=== PATIENT | male | born 1965 ===

== ENCOUNTER → 2020-11-14 14:16 | Outpatient (BNVA) | payer MEDICARE, SELFPAY | PROVIDERS: PCP Internal Medicine; Visit Provider Nurse Practitioner Family | DX: M05.79 Rheumatoid arthritis with rheumatoid factor of multiple sites without organ or systems involvement (principal); M25.50 Pain in unspecified joint; M25.561 Pain in right knee; M25.562 Pain in left knee; G89.29 Other chronic pain | CPT/HCPCS: 99202 ==

== ENCOUNTER 2023-10-25 10:28 | Outpatient (AMB) | payer MEDICARE, OTHER, SELFPAY ==
--- NOTE | 2023-10-25 11:08 | AM.OFFWIN_ITS ---
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 Patient Tobacco Use Status: Current everyday Tobacco user Allergies naproxen [From Aleve] Adverse Reaction (Verified 10/25/23 12:55) rash Medication List - Last Reconciled 10/25/23 by Regulo Aguila MD amlodipine 5 mg PO DAILY atorvastatin mg PO erythromycin 0.5 inches ophthalmic (eye) TID escitalopram oxalate mg PO folic acid PO gabapentin mg PO methotrexate sodium mg PO omeprazole 20 mg PO DAILY oxycodone-acetaminophen 5-325 mg 1 tab PO QID PRN tramadol 50 mg PO Q6H PRN Do you need a note to return to daycare/school/sports/work: No HPI FULL TIME BABYSITTER/eye irritation (lobby) HPI Details 58 yr old male presents to the office fo r a sick visit. Patient is complaining of her red eye. Symptoms started yesterday. This morning he had mucoid discharge and excessive tearing from the right eye. No symptoms of cold, congestion or cough. PFSH Social History Patient Tobacco Use Status: Current everyday Tobacco user Physical Exam Vital Signs: Last Vital Signs Pulse 81 10/25/23 11:10 BP 114/68 10/25/23 11:10 Pulse Ox 96 10/25/23 11:10 Oxygen Delivery Method Room Air 10/25/23 11:10 BMI result Body Mass Index 23.6 Eyes Other: Right eye: Bulbar conjunctiva is congested. Corneas clear. Anterior chambers clear no digital tenderness. Assessment & Plan Assessment & Plan (1) Acute conjunctivitis: Code(s): H10.30 - Unspecified acute conjunctivitis, unspecified eye Plan Erythromycin ointment called in. If symptoms not better to follow-up here. Medications: New erythromycin 0.5 inches ophthalmic (eye) TID 1 g 0RF Coding Level of Care Code Est Pt Level 3 (98536) Diagnoses Acute conjunctivitis H10.30
[2023-10-25 11:10] VITALS: BP 114/68; PULSE 81; O2SAT 96; BMI 23.6
== END 2023-10-25 12:25 | disposition home or self-care (01) ==
PROVIDERS: PCP Internal Medicine; Visit Provider Internal Medicine
DX: H10.30 Unspecified acute conjunctivitis, unspecified eye (principal)
CPT/HCPCS: 99213

== ENCOUNTER 2024-09-13 13:38 | Outpatient (REF) | payer MEDICARE, SELFPAY ==
[2024-09-13 15:57] LABS: MANUAL DIFF FLAG NO
[2024-09-13 16:08] LABS: Basophils Absolute Auto 0.1 X10*3/uL (0.0-0.2); Basophils Percent Auto 0.9 % (0-2); Eosinophils Absolute Auto 0.1 X10*3/uL (0.0-0.4); Eosinophils Percent Auto 1.1 % (0-4); Hematocrit 44.7 % (42.0-52.0); Hemoglobin 15.1 g/dl (14.0-18.0); Imm Gran Abs Auto 0.04 X10*3/uL (0.00-0.03); Imm Gran Pct Auto 0.4 % (0.0-0.4); Lymphocytes Absolute Auto 2.1 X10*3/uL (1.2-4.9); Lymphocytes Percent Auto 20.3 % (20-40); Mean Corpuscular HGB Conc 33.8 g/dl (31.0-36.0); Mean Corpuscular Volume 97.6 fL (80.0-98.0); Mean Platelet Volume 10.7 fL (9.4-12.4); Monocytes Absolute Auto 0.8 X10*3/uL (0.1-1.2); Monocytes Percent Auto 8.1 % (2-11); Neutrophils Absolute Auto 7.2 x10*3/uL (2.0-8.3); Neutrophils Percent Auto 69.2 % (45-73); Platelet Count 279 X10*3/uL (160-400); Red Blood Count 4.58 X10*6/uL (4.60-5.80); Red Cell Distribution Width 13.6 % (11.0-16.0); White Blood Count 10.4 X10*3/uL (4.8-10.8)
[2024-09-13 16:41] LABS: Alanine Aminotransferase 15 U/L (0-40); Aspartate Amino Transferase 20 U/L (5-37); C Reactive Protein 0.13 mg/dL (< or = 0.50); Estimated Glomerular Filt Rate > 60
[2024-09-13 17:25] LABS: Erythrocyte Sedimentation Rate 3 MM/HR (0-15)
== END 2024-09-13 13:39 | disposition home or self-care (01) ==
LOC: HO.HMGCLDS 13:38
PROVIDERS: PCP Internal Medicine; Visit Provider Internal Medicine Rheumatology
DX: M05.79 Rheumatoid arthritis with rheumatoid factor of multiple sites without organ or systems involvement (principal); M79.641 Pain in right hand; M79.642 Pain in left hand; Z79.631 Long term (current) use of antimetabolite agent
CPT/HCPCS: 36415; 82565; 84450; 84460; 85025; 85652; 86140; 99212

== ENCOUNTER 2024-09-13 13:38 | Outpatient (AMB) | payer MEDICARE, SELFPAY ==
[2024-09-13 13:46] VITALS: BP 118/74; PULSE 92; O2SAT 99; BMI 22.7
--- NOTE | 2024-09-13 13:46 | MHC.OFFVIS ---
Vital Signs 09/13/24 13:46 Height 5 ft 8 in Weight 149 lb 9 oz BMI 22.7 BP 118/74 Blood Pressure Location Lt brachial Position Sitting Pulse 92 Pulse Source Pulse Oximeter Pulse Oximetry (%) 99 Oxygen Delivery Method Room Air Intake Visit Reasons: Arthritis (ATC recs on file) Intake Note: Patient presents for follow up on RA. Allergies naproxen [From Aleve] Adverse Reaction (Verified 09/13/24 13:49) rash HPI HPI Arthritis (ATC recs on file): Details: He just recieved cortisone injections bilateral knees with benefit. He is seeing pain management. He is also receiving cortisone injections in lower L spine. No flares from rheumatoid arthritis. He has about 10 minutes of morning stiffness. No recent infections. [facility] Social History Patient Tobacco Use Status: Current everyday Tobacco user Review of Systems Const All systems reviewed & are unremarkable except as noted in HPI and below Physical Exam Vital Signs: Last Vital Signs Pulse 92 09/13/24 13:46 BP 118/74 09/13/24 13:46 Pulse Ox 99 09/13/24 13:46 Oxygen Delivery Method Room Air 09/13/24 13:46 BMI result Body Mass Index 22.7 Const Other: General: Comfortable CVS: RRR Respiratory: clear to auscultation bilaterally. Good respiratory effort Skin: No lesions seen MSK: No tenderness of any joints. No synovitis. Shoulder abduction 120 degrees with good internal external rotation. Good range of motion of lower extremities. Assessment & Plan Assessment & Plan (1) Rheumatoid arthritis: Comment: Controlled with monotherapy with methotrexate Code(s): M06.9 - Rheumatoid arthritis, unspecified Category: Medical Qualifiers: Rheumatoid arthritis location: multiple sites Rheumatoid factor presence: with rheumatoid factor Qualified Code(s): M05.79 - Rheumatoid arthritis with rheumatoid factor of multiple sites without organ or systems involvement Plan: Continue methotrexate 20 mg once weekly Continue folic acid 1 mg daily After lab results are back, I will send prescription for methotrexate 90 day supply Return to clinic in 3 months Orders: Orders Complete Blood Count Auto Diff Today Z79.60 - exterminator helper termite (current) use of unspecified immunomodulators and immunosuppressants C Reactive Protein Today M05.79 - Rheumatoid arthritis with rheumatoid factor of multiple sites without organ or systems involvement Alanine Aminotransferase Today Z79.60 - intermediate (current) use of unspecified immunomodulators and immunosuppressants Aspartate Amino Transferase Today Z79.60 - exterminator helper termite (current) use of unspecified immunomodulators and immunosuppressants Creatinine Today Z79.60 - intermediate (current) use of unspecified immunomodulators and immunosuppressants Erythrocyte Sedimentation Rate Today M79.641 - Pain in right hand, M79.642 - Pain in left hand Coding Level of Care Code Est Pt Level 4 (50332) Complex EM visit Add On G2211 Diagnoses Rheumatoid arthritis involving multiple sites with positive rheumatoid factor M05.79 Rheumatoid arthritis location: multiple sites Rheumatoid factor presence: with rheumatoid factor
== END 2024-09-13 14:28 | disposition home or self-care (01) ==
PROVIDERS: PCP Internal Medicine; Visit Provider Internal Medicine Rheumatology
DX: M05.79 Rheumatoid arthritis with rheumatoid factor of multiple sites without organ or systems involvement (principal)
CPT/HCPCS: 99214; G2211

== ENCOUNTER 2024-12-12 13:42 | Outpatient (AMB) | payer MEDICARE, SELFPAY ==
--- NOTE | 2024-12-12 13:47 | A.OFFVIS_ITS ---
Vital Signs 12/12/24 13:49 Height 5 ft 8 in Weight 153 lb 7.068 oz BMI 23.3 BP 120/78 Blood Pressure Location Lt brachial Position Sitting Pulse 104 H Pulse Source Pulse Oximeter Pulse Oximetry (%) 96 Intake Visit Reasons: 3 mo follow up Intake Note: Patient presents for follow up on RA. Pt sates that the methotextrate has been giving him thrush but he does not want to change med. Allergies naproxen [From Aleve] Adverse Reaction (Verified 12/12/24 13:53) rash HPI Comments Details: He feels well. No joint pain or swelling. He had a yeast infection oral thrush treated with nystatin [facility] Social History Patient Tobacco Use Status: Current everyday Tobacco user Review of Systems Const All systems reviewed & are unremarkable except as noted in HPI and below Physical Exam Vital Signs: Last Vital Signs Pulse 104 H 12/12/24 13:49 BP 120/78 12/12/24 13:49 Pulse Ox 96 12/12/24 13:49 BMI result Body Mass Index 23.3 Const Other: General: Comfortable CVS: RRR Respiratory: clear to auscultation bilaterally. Good respiratory effort Skin: No lesions seen MSK: No tenderness of any joints. No synovitis. Shoulder abduction 170 degrees with normal internal external rotation. Normal range of motion of lower extremities. Assessment & Plan Assessment & Plan (1) Hand cramp: Comment: Intermittent. Bilateral. Code(s): R25.2 - Cramp and spasm Category: Medical Plan: electrolytes ordered Encouraged hydration. (2) Rheumatoid arthritis: Comment: Controlled with monotherapy with methotrexate Code(s): M06.9 - Rheumatoid arthritis, unspecified Category: Medical Qualifiers: Rheumatoid arthritis location: multiple sites Rheumatoid factor presence: with rheumatoid factor Qualified Code(s): M05.79 - Rheumatoid arthritis with rheumatoid factor of multiple sites without organ or systems involvement Plan: Continue methotrexate 20 mg once weekly Continue folic acid 1 mg daily Labs for disease and drug monitoring on high risk medication due today Return to clinic in 3 months Orders: Orders Complete Blood Count Auto Diff Today Z79.60 - half-way (current) use of unspecified immunomodulators and immunosuppressants Creatinine Today Z79.60 - terminal operator (current) use of unspecified immunomodulators and immunosuppressants C Reactive Protein Today Z79.899 - Other petroleum terminal plant operator (current) drug therapy Albumin Level Today R25.2 - Cramp and spasm Alanine Aminotransferase Today Z79.60 - terminal operator (current) use of unspecified immunomodulators and immunosuppressants Aspartate Amino Transferase Today Z79.60 - half-way (current) use of unspecified immunomodulators and immunosuppressants Erythrocyte Sedimentation Rate Today Z79.899 - Other petroleum terminal plant operator (current) drug therapy Magnesium Today R25.2 - Cramp and spasm Calcium Today R25.2 - Cramp and spasm Potassium Today R25.2 - Cramp and spasm Medications: Changed From folic acid PO To folic acid 1 mg PO DAILY 90 tabs 3RF Refilled methotrexate sodium 20 mg (8 x 2.5 mg) PO QWEEK 102 tabs 0RF Coding Level of Care Code Est Pt Level 4 (21228) Complex EM visit Add On G2211 Diagnoses Hand cramp R25.2 Rheumatoid arthritis involving multiple sites with positive rheumatoid factor M05.79 Rheumatoid arthritis location: multiple sites Rheumatoid factor presence: with rheumatoid factor
[2024-12-12 13:49] VITALS: BP 120/78; PULSE 104; O2SAT 96; BMI 23.3
--- OUTSIDE RECORDS SUMMARY | 2024-12-12 16:22 | XMS_ITS | Encounter Summary ---
Author Organization [facility] Address [address] [place] [address] Care Team Providers Care Clinical Pharmacy Coordinator Name Role Phone Jose Alberto Palacio PA-C Primary Care Provider [phone] Chad Pino MD Unavailable [phone] Aggie Magaña MD Unavailable [phone] Lizzette Paul PA-C Unavailable [phone] Rich Interiano PA-C Unavailable [phone] Encounter Details Date Type Department Care Team Description 09/29/2021 PNO Controlled Substance Contract Medical Records [address] [place] [id number] Abstract, Provider Social History Tobacco Use Types Packs/Day Years Used Date Smoking Tobacco: Every Day Cigarettes 1.5 46 Started: 1976 Smokeless Tobacco: Never Comments:Patient used to smo ke 1.5 then lower to 3/4 and now smoking 0.5pack Alcohol Use Standard Drinks/Week Comments Yes 0 (1 standard drink = 0.6 oz pur e alcohol) 1-2 beers occasionally Sex Assigned at Date Recorded Not on file Job Start Date Occupation Industry Not on file Not on file Not on file COVID-19 Exposure Response Date Recorded In the last month, have you been in contact with someone who was confirmed or suspected to have Coronavirus / COVID-19? No / Unsure 09/16/2021 2:46 PM EST documented as of this encounter Plan of Treatment Not on file documented as of this encounter Visit Diagnoses Not on filedocumented in this encounter Care Teams Clinical Pharmacy Coordinator Relationship Specialty Start Date End Date Jose Alberto Palacio PA-C [address] [place] [address] PCP - General Internal Medicine 04/15/21 Chad Pino MD [address] [place] [address] Specialist Cardiology 07/27/22 Aggie Magaña MD [address] [address] Surgeon Neurosurgery 10/11/23 Lizzette Paul PA-C [address] [address] Specialist Neurosurgery 10/11/23 Rich Interiano PA-C [address] [address] Specialist Neurosurgery 10/11/23 documented as of this encounter
--- OUTSIDE RECORDS SUMMARY | 2024-12-12 16:22 | XMS_ITS | Clinical Summary ---
Author Organization [facility] Address [address] [place] [address] Care Team Providers Care Computer Equipment Installer Name Role Phone Jose Alberto Palacio PA-C Primary Care Provider [phone] Chad Pino MD Unavailable [phone] Aggie Magaña MD Unavailable [phone] Lizzette Paul PA-C Unavailable Rich Interiano PA-C Unavailable Allergies Active Allergy Reactions Severity Noted Date Comments Aleve Hives/Urticaria 02/01/2018 Medications Medication Sig Dispensed Refills Start Date End Date Status Oxygen Historical (HISTORICAL OXYGEN)Indications:S tage 2 moderate COPD by GOLD classification ([facility]) Inhale 2 L into the lungs at bedtime. [employer] 0 Active methotrexate 2.5 MG tabletIndications:Se ropositive rheumatoid arthritis of multiple sites ([facility]) Take 6 Tablets by mouth once a week. 72 tablet 0 10/21/2021 Active celecoxib (CELEBREX) 200 MG capsule TAKE 1 CAPSULE BY MOUTH TWICE DAILY WITH FOOD 0 07/08/2022 Active aspirin (Aspirin 81) 81 MG chewable tablet Take 1 Tablet by mouth daily for 360 days. 30 Tablet 11 08/11/2022 Active folic acid (FOLVITE) 1 MG tablet Take 1 Tablet by mouth daily. 0 01/25/2023 Active budesonide-formotero l (Symbicort) 160-4.5 MCG/ACT inhalerIndications:C hronic obstructive pulmonary disease, unspecified COPD type (HCC),Centrilobular emphysema (HCC) Inhale 2 Puffs into the lungs every 12 hours for 90 days. This medication has inhaler steroid: Rinse mouth with water and expectorate after each dose to prevent oral/esophageal candidiasis or fungal infection. 10.6 g 11 04/24/2024 Active ALBUTEROL SULFATE (Ventolin HFA) 108 (90 Base) MCG/ACT Aero SolnIndications:Networking Administrator flex obstructive pulmonary disease, unspecified COPD type (HCC),Centrilobular emphysema (HCC) Inhale 2 Puffs into the lungs 4 times daily as needed for Cough, Wheezing or Shortness of Breath. 18 g 11 04/24/2024 Active Ipratropium-Albutero l 0.5-2.5 (3) MG/3ML SolutionIndications: Chronic obstructive pulmonary disease, unspecified COPD type (HCC),Centrilobular emphysema (HCC),Stage 2 moderate COPD by GOLD classification (HCC),Pulmonary emphysema, unspecified emphysema type (HCC) Take 3 mL by nebulization 4 times daily as needed for Other (cough, wheezing, chest tightness and shortness of breath). 360 mL 2 05/18/2024 Active atorvastatin (LIPITOR) 20 MG tablet Take 1 Tablet by mouth daily. 90 Tablet 1 06/11/2024 Active gabapentin (NEURONTIN) 600 MG tablet TAKE 1 TABLET BY MOUTH THREE TIMES DAILY 270 Tablet 1 06/11/2024 Active trazodone (DESYREL) 150 MG tablet Take 1 Tablet by mouth at bedtime. 90 Tablet 1 06/11/2024 Active busPIRone (BUSPAR) 5 MG tablet TAKE 1 TABLET BY MOUTH THREE TIMES DAILY 270 Tablet 1 06/27/2024 Active omeprazole (PRILOSEC) 20 MG capsule TAKE ONE CAPSULE BY MOUTH DAILY AT 9 AM 90 Capsule 11 07/11/2024 Active tramadol (ULTRAM) 50 MG tablet Take 2 Tablets by mouth every 6 hours as needed for Pain. 112 Tablet 0 07/12/2024 Active Active Problems Problem Noted Date Spondylolisthesis of lumbosacral region 10/11/2023 Last Assessment & Plan: Patient describes approximately 3 years of back pain that is worsening with time, pain down the lateral legs bilaterally (equally). He is not experiencing any numbness tingling in the lower extremities. He does not recall an inciting event. His sitting and standing tolerance is 10-20 minutes. He rates his pain 8.5/10. He tried physical therapy in the past without improvement. He has not continued the exercises at home. On 09/23/2023 he had an L5-S1 LESVIA with Dr. Andrews, does not feel it helped his back or leg pain. He has had T11 spinous process ligament injections 12/22/2022 and 01/19/2023, shoulder injections 08/31/2023, bilateral subacromial injection 01/19/2023. His daughter states they plan to do (what sounds like) SI joint injections, but need to have him go to the hospital and be sedated. Patient had MRI lumbar spine 09/08/2023 at [facility] that overall shows mild multilevel degenerative changes, no central stenosis, mild foraminal stenosis L5-S1 with minimal (3 mm) anterolisthesis L5-S1. No nerve root compression noted. I reviewed the MRI images in detail with the patient and his daughter on the computer. Dr. Magaña reviewed them today as well. He also went today for lumbar spine x- rays to rule out any instability with flexion-extension views. Mr. Currie has low back pain, was very tender over the SI joints, it sounds like he has upcoming SI joint injections with Dr. Andrews. Dr. Magaña is not recommending any neurosurgical intervention for the lumbar spine at this time. He can follow-up after his SI joint injections. We talked about other conservative treatment options like acupuncture, aquatic physical therapy. I did encourage him to try to do core strengthening exercises he learned at physical therapy at home to help with back pain. We talked about the importance of working on quitting smoking/nicotine products, for the long-term health of his spine, he has been cutting down, 2 --> now 1 pack/day. I asked him to call with any questions or concerns. All questions answered on today's visit. Nocturnal hypoxia 06/13/2023 Overview: 06/13/2023 overnight oximetry on room air showed: 1. Lowest oxygen saturation is 88%. 2. Time spent less than 88% is 31 seconds. 3. Patient spent most of the time with adequate oxygen. 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 Some treatment with methotrexate and Xeljanz ~ 2015 but ran out of insurance RF, CCP Ab positive Anxiety 02/01/2018 Gastroesophageal reflux disease without esophagitis 02/01/2018 Tobacco use 02/01/2018 Mixed hyperlipidemia 02/01/2018 Resolved Problems Problem Noted Date Resolved Date Follow up at [facility] for screeni ng for malignant neoplasm of lung 05/31/2019 08/17/2019 Follow up at [facility] for screening for lung cancer 0 11/28/2018 02/13/2019 Nicotine dependence, uncomplicated 05/26/2018 05/26/2018 Nausea 02/01/2018 05/11/2018 Pulmonary emphysema 02/01/2018 06/29/2021 Encounters Date Type Specialty Care Team Description 10/22/2024 Telephone Adult Med Jose Alberto Palacio PA-C from Last 3 Months Immunizations Name Administration Dates Next Due COVID-19 (Pfizer) 08/31/2021,02/11/2021,01/22/20 21 Family History Medical History Relation Name Comments Arthritis Mother Relation Name Status Comments Mother Social History Tobacco Use Types Packs/Day Years Used Date Smoking Tobacco: Every Day Cigarettes 1 46 Started: 1976 Smokeless Tobacco: Never Tobacco Cessation:Ready to Q uit: Not Asked; Counseling Given: Not Answered Comments:Patient used to smoke 1.5 then lower to 3/4 and now smoking 0.5pack Alcohol Use Standard Drinks/Week Comments Yes 0 (1 standard drink = 0.6 oz pur e alcohol) socially Sex Assigned at Date Recorded Not on file Job Start Date Occupation Industry Not on file Not on file Not on file Last Filed Vital Signs Vital Sign Reading Time Taken Comments Blood Pressure 115/73 06/11/2024 12:49 PM EDT Pulse 88 06/11/2024 12:49 PM EDT Temperature 36.4 ??C (97.5 ??F) 06/11/2024 12:49 PM E DT Respiratory Rate 14 06/11/2024 12:49 PM EDT Oxygen Saturation 97% 05/18/2024 8:54 AM EDT Inhaled Oxygen Concentration - - Weight 69.1 kg (152 lb 6.4 oz) 06/11/2024 12:49 PM EDT Height 172.7 cm (5' 8 ) 06/11/2024 12:49 PM EDT Body Mass Index 23.17 06/11/2024 12:49 PM EDT Plan of Treatment Health Maintenance Due Date Last Done Comments BASELINE HEALTH EXAM 40-64 02/13/2021 02/13/2019 (Re fused) Covid-19 Vaccine (2022-2 4 season) 2024 08/31/2021, 02/11/2021, 01/21/2021 INFLUENZA (#1) 2024 09/09/2020 (Refu sed), 08/17/2019 (Refused), 09/22/2018 (Refused) Lung Cancer Screening (Low D ose CT) 07/05/2024 07/05/2023, 08/19/2022 (External Completion), 07/03/2022, Additional history exists DEPRESSION SCREENING/FOLLOWUP 09/19/2024, 06/11/2024, 04/25/2024, Additional history exists SOCIAL NEEDS SCREENING 09/19/2024 , 04/26/2023, 11/23/2021, Additional history exists DEPRESSION SCREEN 06/11/2025 06/11/2024, (Completed), 09/09/2020 (Completed), Additional history exists TOBACCO CHECK/ADVISE 02/01/2026 02/02/2024, 11/28/2023, 05/30/2023, Additional history exists DTAP/TDAP/TD (2 - Td or Tdap) 05/11/2028 (External Completion) PNEUMOCOCCAL VACCINE FOR HIG H RISK PATIENTS (#2) 2028 02/13/2019 (Refused) CHOLESTEROL SCREENING 08/29/2028 08/29/2023 , 09/23/2022, 09/23/2022, Additional history exists COLON CANCER SCREENING 02/13/2029 02/13/2019 (Refuse d) HEPATITIS C SCREENING Completed 02/01/2018 SHINGLES VACCINE Discontinued 09/09/2020 (Refused) Care Teams Computer Equipment Installer Relationship Specialty Start Date End Date Jose Alberto Palacio PA-C [address] [place] [address] PCP - General Internal Medicine 04/15/21 Chad Pino MD [address] [place] [address] Specialist Cardiology 07/27/22 Aggie Magaña MD [address] [address] Surgeon Neurosurgery 10/11/23 Lizzette Paul PA-C [address] [address] Specialist Neurosurgery 10/11/23 Rich Interiano PA-C [address] [id number] Specialist Neurosurgery 10/11/23
--- OUTSIDE RECORDS SUMMARY | 2024-12-12 16:22 | XMS_ITS | Encounter Summary ---
Author Organization [facility] Address [address] [place] [address] Care Team Providers Care Senior Software Test Engineer Name Role Phone Jose Alberto Palacio PA-C Primary Care Provider [phone] Chad Pino MD Unavailable [phone] Aggie Magaña MD Unavailable [phone] Lizzette Paul PA-C Unavailable [phone] Rich Interiano PA-C Unavailable [phone] Encounter Details Date Type Department Care Team Description 07/05/2022 Progressive Care Unit Registered Nurse Report Medical Records [address] [place] [id number] [facility] [address] [place] [address] Social History Tobacco Use Types Packs/Day Years [...] Exposure Response Date Recorded In the last 10 days, have yo u been in contact with someone who was confirmed or suspected to have Coronavirus/COVID-19? No / Unsure 06/29/2022 1:04 PM EDT documented as of this encounter Plan of Treatment Not on file documented as of this encounter Visit Diagnoses Not on filedocumented in this encounter Care Teams Senior Software Test Engineer Relationship Specialty Start Date End Date Jose Alberto Palacio PA-C [address] [place] [address] PCP - General Internal Medicine 04/15/21 Chad Pino MD [address] [place] [address] Specialist Cardiology 07/27/22 Aggie Magaña MD [address] [address] Surgeon Neurosurgery 10/11/23 Lizzette Paul PA-C [address] [address] Specialist Neurosurgery 10/11/23 Rich Interiano PA-C [address] [address] Specialist Neurosurgery 10/11/23 documented as of this encounter
--- OUTSIDE RECORDS SUMMARY | 2024-12-12 16:22 | XMS_ITS | Encounter Summary ---
Author Organization [facility] Address [address] [place] [address] Care Team Providers Care Mobile Heavy Equipment Operator Name Role Phone Jose Alberto Palacio PA-C Primary Care Provider [phone] Chad Pino MD Unavailable [phone] Aggie Magaña MD Unavailable [phone] Lizzette Paul PA-C Unavailable [phone] Rich Interiano PA-C Unavailable [phone] Encounter Details Date Type Department Care Team Description 04/15/2022 Police And Fire Dispatcher Report Medical Records [address] [place] [id number] Casey Frank MD Social History Tobacco Use Types Packs/Day Years [...] Recorded In the last 10 days, have rudy u been in contact with someone who was confirmed or suspected to have Coronavirus/COVID-19? No / Unsure 03/17/2022 3:45 PM EDT documented as of this encounter Plan of Treatment Not on file documented as of this encounter Visit Diagnoses Not on filedocumented in this encounter Care Teams Mobile Heavy Equipment Operator Relationship Specialty Start Date End Date Jose Alberto Palacio PA-C [address] [place] [address] PCP - General Internal Medicine 04/15/21 Chad Pino MD [address] [place] [address] Specialist Cardiology 07/27/22 Aggie Magaña MD [address] [address] Surgeon Neurosurgery 10/11/23 Lizzette Paul PA-C [address] [address] Specialist Neurosurgery 10/11/23 Rich Interiano PA-C [address] [address] Specialist Neurosurgery 10/11/23 documented as of this encounter
--- OUTSIDE RECORDS SUMMARY | 2024-12-12 16:22 | XMS_ITS | Encounter Summary ---
Author Organization [facility] Address [address] [place] [address] Care Team Providers Care Boat Engines Installer Name Role Phone Tina Suarez MD Primary Care Provider Unavail able Jose Alberto Palacio PA-C Primary Care Provider [phone] Chad Pino MD Unavailable [phone] Aggie Magaña MD Unavailable [phone] Lizzette Paul PA-C Unavailable [phone] Rich Interiano PA-C Unavailable [phone] Encounter Details Date Type Department Care Team Description 05/16/2020 [facility] Medical Records [address] [place] [address] Abstract, Provider Social History Tobacco Use Types Packs/Day Years Used Date Smoking Tobacco: Every Day Cigarettes 0.8 35 Smokeless Tobacco: Never Alcohol Use Standard Drinks/Week Comments Yes 0 (1 standard drink = 0.6 oz pur e alcohol) 1-2 beers occasionally Sex Assigned at Date Recorded Not on file Job Start Date Occupation Industry Not on file Not on file Not on file documented as of this encounter Plan of Treatment Not on file documented as of this encounter Visit Diagnoses Not on filedocumented in this encounter Care Teams Boat Engines Installer Relationship Specialty Start Date End Date Tina Suarez MD PCP - General Internal Medicine 01/31/18 04/14/21 Jose Alberto Palacio PA-C [address] [place] [address] PCP - General Internal Medicine 04/15/21 Chad Pino MD [address] [place] [address] Specialist Cardiology 07/27/22 Aggie Magaña MD [address] [address] Surgeon Neurosurgery 10/11/23 Lizzette Paul PA-C [address] [address] Specialist Neurosurgery 10/11/23 Rich Interiano PA-C [address] [address] Specialist Neurosurgery 10/11/23 documented as of this encounter
--- OUTSIDE RECORDS SUMMARY | 2024-12-12 16:22 | XMS_ITS | Encounter Summary ---
Author Organization [facility] Address [address] [place] [address] Care Team Providers Care Premium Auditor Name Role Phone Jose Alberto Palacio PA-C Primary Care Provider [phone] Chad Pino MD Unavailable [phone] Aggie Magaña MD Unavailable [phone] Lizzette Paul PA-C Unavailable [phone] Rich Interiano PA-C Unavailable [phone] Encounter Details Date Type Department Care Team Description 11/02/2023 Orders Only Medical Records [address] [place] [id number] Lupe Pinto PA-C Social History Tobacco Use Types Packs/Day Years Used Date Smoking Tobacco: Every Day Cigarettes 1 46 Started: 1976 Smokeless Tobacco: Never Comments:Patient [...] on file documented as of this encounter Procedures Procedure Name Priority Date/Time Associated Diagnosis Comments OUTSIDE CT Routine 09/09/2022 documented in this encounter Results * OUTSIDE CT (09/09/2022) Lupe Pinto PA-C RADIOLOGY documented in this encounter Visit Diagnoses Not on filedocumented in this encounter Care Teams Premium Auditor Relationship Specialty Start Date End Date Jose Alberto Palacio PA-C [address] [place] [address] PCP - General Internal Medicine 04/15/21 Chad Pino MD [address] [place] [address] Specialist Cardiology 07/27/22 Aggie Magaña MD [address] [address] Surgeon Neurosurgery 10/11/23 Lizzette Paul PA-C [address] [address] Specialist Neurosurgery 10/11/23 Rich Interiano PA-C [address] [address] Specialist Neurosurgery 10/11/23 documented as of this encounter
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
--- OUTSIDE RECORDS SUMMARY | 2024-12-12 16:22 | XMS_ITS | Encounter Summary ---
Author Organization [facility] Address [address] [place] [address] Care Team Providers Care Mold Injector Name Role Phone Jose Alberto Palacio PA-C Primary Care Provider [phone] Chad Pino MD Unavailable [phone] Aggie Magaña MD Unavailable [phone] Lizzette Paul PA-C Unavailable [phone] Rcih Interiano PA-C Unavailable [phone] Encounter Details Date Type Department Care Team Description 12/05/2023 Defensive Secondary Coach Report Medical Records [address] [place] [id number] Casey Frank MD Social History Tobacco Use [...] on filedocumented in this encounter Care Teams Mold Injector Relationship Specialty Start Date End Date Jose Alberto Palacio PA-C [address] [place] [id number] PCP - General Internal Medicine 04/15/21 Chad Pino MD [address] [place] [address] Specialist Cardiology 07/27/22 Aggie Magaña MD [address] [address] Surgeon Neurosurgery 10/11/23 Lizzette Paul PA-C [address] [address] Specialist Neurosurgery 10/11/23 Rich Interiano PA-C [address] [address] Specialist Neurosurgery 10/11/23 documented as of this encounter
--- OUTSIDE RECORDS SUMMARY | 2024-12-12 16:22 | XMS_ITS | Clinical Summary ---
Author Organization [facility] Address [address] [place] [address] Phone Care Team Providers Care Channel Business Manager Name Role Phone Jose Alberto Palacio Primary Care Provider [phone] Allergies Active Allergy Reactions Criticality Noted Date Comments Naproxen 02/01/2018 Other Reaction(s): Hives/Urticaria Medications omeprazole (PriLOSEC) [address] capsule Take 1 capsule (20 mg total) by mouth 1 (one) time each day. 3 Active methotrexate 2.5 mg tablet Take 8 Tablets by mouth once a week/sundays 2 Active gabapentin (NEURONTIN) 600 mg tablet TAKE 1 TABLET BY MOUTH THREE TIMES DAILY 4 Active aspirin 81 mg chewable tablet Chew 1 tablet (81 mg total). 2 Active busPIRone (BUSPAR) 5 mg tablet TAKE 1 TABLET BY MOUTH THREE TIMES DAILY 4 Active celecoxib (CeleBREX) 200 mg capsule TAKE 1 CAPSULE BY MOUTH TWICE DAILY WITH FOOD 2 Active folic acid (FOLVITE) 1 mg tablet Take 1 tablet (1,000 mcg total) by mouth 1 (one) time each day. 3 Active formoterol (PERFOROMIST) 20 mcg/2 mL nebulizer solution 2 mL (20 mcg total). Active albuterol HFA (PROAIR HFA ; PROVENTIL HFA ; VENTOLIN HFA) 90 mcg/actuation inhaler Inhale 2 Puffs into the lungs 4 times daily as needed for Cough, Wheezing or Shortness of Breath. 4 Active budesonide-formo teroL (SYMBICORT) 160-4.5 mcg/actuation inhaler 4 Active Oxygen Therapy (O2) gas Inhale 2 L into the lungs at bedtime. [employer] Active ipratropium-albu teroL (DUONEB) 0.5-2.5 mg/3 mL nebulizer solutionIndicati ons:Centrilobula r emphysema (CMS/HCC),Chroni c obstructive pulmonary disease, unspecified INHALE 3ML (ONE VIAL) VIA NEBULIZER FOUR TIMES DAILY NEEDED FOR COUGH, WHEEZING, CHEST TIGHTNESS AND SHORTNESS OF BREATH 360 mL 11 4 Active atorvastatin (LIPITOR) 20 mg tablet Take 1 tablet (20 mg total) by mouth 1 (one) time each day. At 5pm. 90 tablet 1 5 Active traZODone (DESYREL) 150 mg tablet Take 1 tablet (150 mg total) by mouth at bedtime. 90 tablet 1 5 Active aspirin-acetamin ophen-caffeine (EXCEDRIN MIGRAINE) 250-250-65 mg per tablet Take 2 tablets by mouth every 6 (six) hours if needed for headaches. Active traMADoL (ULTRAM) 50 mg tablet Take 1 tablet (50 mg total) by mouth every 6 (six) hours if needed for severe pain. Max Daily Amount: 200 mg 112 tablet 5 Active escitalopram (LEXAPRO) 20 mg tablet Take 1 tablet (20 mg total) by mouth 1 (one) time each day. 90 tablet 3 5 Active nystatin (MYCOSTATIN) 100,000 unit/mL suspension Take 5 mL by mouth 4 (four) times a day for 14 days. Swish in mouth and swallow. 280 mL 5 11/15/19 25 Active Problems Problem Noted Date Diagnosed Date Tobacco use 09/17/2024 Spondylolisthesis of lumbosacral region 10/11/19 24 Overview (08/07/2024): Last Assessment & Plan: Patient describes approximately [...] Patient had MRI lumbar spine 09/08/2023 at [facility] that overall shows mild multilevel degenerative changes, [...] answered on today's visit. Nocturnal hypoxia 06/13/2023 Overview (08/07/2024): 06/13/2023 overnight oximetry on room air showed: 1. Lowest oxygen saturation is 88%. 2. Time spent less than 88% is 31 seconds. 3. Patient spent most of the time with adequate oxygen. 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 Some treatment with methotrexate and Xeljanz ~ 2015 but ran out of insurance RF, CCP Ab positive Encounters Date Type Department Care Team Description 12/07/2024 Telephone Adult Medicine [address] [phone] Jose Alberto Palacio PA 12/03/[address] [facility] [address] [place] [address] Mami Valentine NP durable medical equipment 11/01/2024 Telephone Adult Medicine [address] [phone] Jose Alberto Palacio PA Thrush 10/22/2024 Telephone Adult Medicine [address] [phone] Jose Alberto Palacio PA 10/02/2024 12:47 PM EST Anesthesia Event [facility] [address] [place] [phone] Pablo Irving MD 10/02/2024 12:04 PM EST - 10/02/2024 11:59 PM EST Hospital Encounter [facility] [address] [place] [phone] Jarocho Andrews DO Abrokwah, Foster Myles G, DISTRICT RECRUITER Radiculopathy, lumbar region Discharge Disposition: Home or Self Care 10/02/2024 6:40 AM EST - 10/02/2024 11:59 PM EST Hospital Encounter [facility] Xray [address] [place] [phone] Pain Discharge Disposition: Home or Self Care 09/17/2024 12:30 PM EST Office Visit [address] [phone] Jose Alberto Palacio PA Fibromyalgia (Primary Dx); Mixed hyperlipidemia; Stage 2 moderate COPD by GOLD classification ([facility]); Seropositive rheumatoid arthritis of multiple sites ([facility]); Encounter for screening for malignant neoplasm of prostate; Tobacco use from Last 3 Months Immunizations Name Administration Dates Next Due Pfizer SARS-CoV-2 COVID-19, mRNA, LNP-S, preservative free 08/31/2021,02/11/2021,01/21/2021 Surgical History Surgery Date Site/Laterality Comments NECK SURGERY PROCEDURE: HISTORICAL NECK SURGERY; COMMENT: per patient 2 disc levels fused, in [place] CARPAL TUNNEL RELEASE Right PROCEDURE: [place] NEUROPLASTY &/TRANSPOS MEDIAN NRV CARPAL TUNNE; COMMENT: In [place] OTHER SURGICAL HISTORY Left PROCEDURE: HISTORICAL EAR SURGERY; COMMENT: congenital ear deformity OTHER SURGICAL HISTORY 08/2023 PROCEDURE: HISTORY OTHER; COMMENT: Cardiac stent placed, patient was having chest pain Medical History Medical History Date Comments Gout 02/01/2018 DX:Gout Anxiety 02/01/2018 DX:Anxiety Tobacco use 02/01/2018 DX:Tobacco use Pulmonary emphysema (CMS/HCC) 02/01/2018 DX :Pulmonary emphysema (HCC) Seropositive rheumatoid arth ritis of multiple sites (CMS/HCC) 02/01/2018 DX:Seropositive rheumatoid a rthritis of multiple sites ([facility]) 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 Gastroesophageal reflux dise ase without esophagitis 02/01/2018 DX:Gastroesophageal reflux d isease without esophagitis Mixed hyperlipidemia 02/01/2018 DX:Mixed hy perlipidemia Primary osteoarthritis of both knees 03/01/2018 DX:Primary osteoarthritis of both knees Stage 2 moderate COPD by GOL D classification ([facility]) 05/26/2018 DX:Stage 2 moderate COPD by GOLD classification ([facility]); COMMENT: S/p LDCT 06/2018 no suspicious findings Family History Medical History Relation Name Comments Arthritis Mother Relation Name Status Comments Mother Social History Tobacco Use Types Packs/Day Years Used Date Smoking Tobacco: Every Day Cigarettes 1 50.2 Started: 09/19/1974 Smokeless Tobacco: Never Tobacco Cessation:Ready to Q uit: Not Asked; Counseling Given: Not Answered Alcohol Use Standard Drinks/Week Comments Yes 0 [...] Orientation Straight 09/28/2024 6: 10 PM EST Obstetrics History Last Filed Vital Signs Vital Sign Reading Time Taken Comments Blood Pressure 102/72 10/02/2024 1:37 PM EST Pulse 91 10/02/2024 1:37 PM EST Temperature 36.9 ??C (98.5 ??F) 10/02/2024 1:09 PM ES T Respiratory Rate 16 10/02/2024 1:37 PM EST Oxygen Saturation 98% 10/02/2024 1:37 PM EST Inhaled Oxygen Concentration - - Weight 70.8 kg (156 lb) 10/02/2024 12:11 PM EST Height 172.7 cm (5' 7.99 ) 10/02/2024 12:[address] Body Mass Index 23.73 10/02/2024 12:11 PM EST Plan of Treatment Upcoming Encounters Date Type Department Care Team (Late st Contact Info) Description 12/18/2024 8:45 AM EDT Office Visit Adult Medicine [facility] [address] [place] [phone] Jose Alberto Palacio PA [address] [place] [address] 02/06/2025 3:00 PM EDT Office Visit Pulmonolgy - [place] [address] [place] [phone] Mami Valentine NP [address] [place] [address] Health Maintenance Due Date Last Done Comments Pneumococcal Vaccine: 50+ Years (1 of 2 - PCV) 1982 HIV Screening 08/28/2022 Medicare Annual Wellness Visit 08/28/2022 Social Influencers of Health Screening 08/28/2022 COVID-19 Vaccine ( season) 2024 08/31/2021, 02/11/2021, 01/21/2021 Influenza Vaccine (#1) 2025 Postp oned from 05/20/2024 (Patient Refused) Depression Screening 06/11/2025 06/11/2024 Lung Cancer Screening (Low Dose CT) 07/17/2025 07/17/2024, 07/08/2023, 07/05/2022, Additional history exists Cholesterol Screening (Lipid Panel) 09/17/2029 09/17/2024, 08/29/2023 Colorectal Cancer Screening: Colonoscopy 08/28/2034 08/28/2024 Hepatitis C Screening Completed 02/01/2018 DTaP,Tdap,and Td Vaccines Discontinued HIB Vaccines Aged Out No longer eligi ble based on patient's age to complete this topic HPV Vaccines Aged Out No longer eligi ble based on patient's age to complete this topic Hepatitis A Vaccines Aged Out No long er eligible based on patient's age to complete this topic Hepatitis B Vaccines Aged Out No long er eligible based on patient's age to complete this topic IPV Vaccines Aged Out No longer eligi ble based on patient's age to complete this topic MMR Vaccines Aged Out No longer eligi ble based on patient's age to complete this topic Meningococcal ACWY Vaccine Aged Out N o longer eligible based on patient's age to complete this topic Meningococcal B Vacine Aged Out No lo nger eligible based on patient's age to complete this topic Pneumococcal Vaccine: Pediatrics (0 to 5 Years) and At-Risk Patients (6 to 64 Years) Discontinued RSV Immunization Patients 60+ Years Old Discontinued RSV Immunization Patients Under 20 months Aged Out No longer eligible based on patient's age to complete this topic Varicella Vaccines Aged Out No longer eligible based on patient's age to complete this topic Zoster Vaccines Discontinued Medical Devices Implanted Type [employer] Device Identifier Shelf Expiration Date Model / Serial / Lot Spinal Hardware Spinal Hardware N/A: Neck Procedures Procedure Name Priority Date/Time Associated Diagnosis Comments CBC WITH AUTO DIFFERENTIAL Routine 09/17/2024 12:50 PM EST Fibromyalgia Mixed hyperlipidemia Stage 2 moderate COPD by GOLD classification (CMS/HCC) Seropositive rheumatoid arthritis of multiple sites (CMS/HCC) PROSTATE SPECIFIC ANTIGEN SCREEN Routine 09/17/2024 12:50 PM EST Fibromyalgia Mixed hyperlipidemia Stage 2 moderate COPD by GOLD classification (CMS/HCC) Seropositive rheumatoid arthritis of multiple sites (CMS/HCC) Encounter for screening for malignant neoplasm of prostate CBC AND DIFFERENTIAL Routine 09/17/2024 12:50 PM EST Fibromyalgia Mixed hyperlipidemia Stage 2 moderate COPD by GOLD classification (CMS/HCC) Seropositive rheumatoid arthritis of multiple sites (CMS/HCC) COMPREHENSIVE METABOLIC PANEL Routine 09/17/2024 12:50 PM EST Fibromyalgia Mixed hyperlipidemia Stage 2 moderate COPD by GOLD classification (CMS/HCC) Seropositive rheumatoid arthritis of multiple sites (CMS/HCC) LIPID PANEL WITH REFLEX TO DIRECT LDL Routine 09/17/2024 12:50 PM EST Fibromyalgia Mixed hyperlipidemia Stage 2 moderate COPD by GOLD classification (CMS/HCC) Seropositive rheumatoid arthritis of multiple sites (CMS/HCC) CT LUNG SCREENING LOW DOSE Routine 07/17/2024 8:53 AM EDT Encounter for screening for malignant neoplasm of respiratory organs HM DEPRESSION SCREENING Routine 06/11/2024 HEPATITIS C SCREENING Routine 02/01/2018 from Last 3 Months or Most Recently Relevant to Health Maintenance Results * Prostate specific antigen screen (09/17/2024 12:50 PM EST) PSA 0.31 0.00 - 4.00 ng/mL LAB CHEMISTRY METHOD 09/17/2024 6:14 PM EST [facility] Blood Venous blood specimen / Unknown Venipuncture / Unknown 09/17/2024 12:50 PM EST 09/17/2024 12:50 PM EST [facility] - 09/17/2024 6:14 PM EST The Siemens Advia UpRaceaur Chemiluminescent Immunoassay is used. Results obtained with different assay methods or kits cannot be used interchangeably. Results cannot be interpreted as absolute evidence of the presence or absence of malignant disease. Jose Alberto PHILLIPS LAB BLOOD ORDERABLES Jimena l Result [facility] [address] [place] [address], * Lipid panel with reflex to direct LDL (09/17/2024 12:50 PM EST) Cholesterol 131 0 - 200 mg/dL LAB CHEMISTRY METHOD 09/17/2024 6:51 PM EST [facility] Triglycerides 114 0 - 150 mg/dL LAB CHEMISTRY METHOD 09/17/2024 6:51 PM EST [facility] HDL 54 >=40 mg/dL LAB CHEMISTRY METHOD 09/17/2024 6:51 PM EST [facility] LDL Calculated 54 0 - 100 mg/dL LAB CHEMISTRY METHOD 09/17/2024 6:51 PM EST [facility] VLDL Cholesterol Rodrigo 22.8 mg/dL LAB CHEMISTRY METHOD 09/17/2024 6:51 PM EST [facility] Non HDL Chol. (LDL+VLDL) 77 <145 mg/dL LAB CHEMISTRY METHOD 09/17/2024 6:51 PM EST [facility] Chol/HDL Ratio 2.4 0.0 - 4.4 LAB CHEMISTRY METHOD 09/17/2024 6:51 PM [facility] Blood Venous blood specimen / Unknown Venipuncture / Unknown 09/17/2024 12:50 PM EST 09/17/2024 12:50 PM EST Jose Alberto PHILLIPS LAB BLOOD ORDERABLES Jimena victor Result [facility] [address] [place] [address], [place] [phone] * (ABNORMAL) CBC auto differential (09/17/2024 12:50 PM EST) WBC 12.6(H) 4.8 - 10.8 K/mcL LAB HEMETOLOGY METHOD 09/17/2024 2:30 PM [facility] RBC 4.60 4.50 - 5.50 M/mcL LAB HEMETOLOGY METHOD 09/17/2024 2:30 PM [facility] Hemoglobin 15.2 13.5 - 17.5 g/dL LAB HEMETOLOGY METHOD 09/17/2024 2:30 PM [facility] Hematocrit 46.0 42.0 - 54.0 % LAB HEMETOLOGY METHOD 09/17/2024 2:30 PM [facility] MCV 100.0(H) 79.0 - 98.0 FL LAB HEMETOLOGY METHOD 09/17/2024 2:30 PM [facility] MCH 33.0(H) 27.0 - 32.0 pcg LAB HEMETOLOGY METHOD 09/17/2024 2:30 PM [facility] MCHC 33.0 32.0 - 37.0 g/dL LAB HEMETOLOGY METHOD 09/17/2024 2:30 PM [facility] RDW 13.6 11.0 - 15.0 % LAB HEMETOLOGY METHOD 09/17/2024 2:30 PM [facility] Platelets 246 130 - 400 K/mcL LAB HEMETOLOGY METHOD 09/17/2024 2:30 PM [facility] MPV 10.7 7.0 - 11.0 FL LAB HEMETOLOGY METHOD 09/17/2024 2:30 PM [facility] NRBC 0.0 <1.0 % LAB HEMETOLOGY METHOD 09/17/2024 2:30 PM [facility] NRBC Absolute 0.00 <0.10 K/mcL LAB HEMETOLOGY METHOD 09/17/2024 2:30 PM [facility] Neutrophils Relative 71.4 % LAB HEMETOLOGY METHOD 09/17/2024 2:30 PM [facility] Lymphocytes Relative 17.1 % LAB HEMETOLOGY METHOD 09/17/2024 2:30 PM [facility] Monocytes Relative 8.0 % LAB HEMETOLOGY METHOD 09/17/2024 2:30 PM [facility] Eosinophils Relative 2.0 % LAB HEMETOLOGY METHOD 09/17/2024 2:30 PM [facility] Basophils Relative 1.0 % LAB HEMETOLOGY METHOD 09/17/2024 2:30 PM [facility] Immature Granulocytes Relative 0.5 % LAB HEMETOLOGY METHOD 09/17/2024 2:30 PM [facility] Neutrophils Absolute 9.02(H) 1.50 - 7.00 K/mcL LAB HEMETOLOGY METHOD 09/17/2024 2:30 PM [facility] Lymphocytes Absolute 2.16 1.00 - 5.00 K/mcL LAB HEMETOLOGY METHOD 09/17/2024 2:30 PM EST [facility] Monocytes Absolute 1.01(H) 0.20 - 1.00 K/mcL LAB HEMETOLOGY METHOD 09/17/2024 2:30 PM [facility] Eosinophils Absolute 0.25 0.00 - 0.50 K/mcL LAB HEMETOLOGY METHOD 09/17/2024 2:30 PM EST [facility] Basophils Absolute 0.12 0.00 - 0.20 K/mcL LAB HEMETOLOGY METHOD 09/17/2024 2:30 PM [facility] Immature Granulocytes Absolute 0.06(H) 0.00 - 0.03 K/mcL LAB HEMETOLOGY METHOD 09/17/2024 2:30 PM [facility] Blood Venous blood specimen / Unknown Venipuncture / Unknown 09/17/2024 12:50 PM EST 09/17/2024 12:50 PM EST us Jose Alberto PHILLIPS LAB BLOOD ORDERABLES Jimena l Result [facility] [address] [place] [address], * (ABNORMAL) Comprehensive metabolic panel (09/17/2024 12:50 PM EST) Sodium 137 133 - 145 mmol/L LAB CHEMISTRY METHOD 09/17/2024 6:51 PM [facility] Potassium 3.9 3.5 - 5.5 mmol/L LAB CHEMISTRY METHOD 09/17/2024 6:51 PM [facility] Chloride 103 96 - 110 mmol/L LAB CHEMISTRY METHOD 09/17/2024 6:51 PM [facility] CO2 28 21 - 32 mmol/L LAB CHEMISTRY METHOD 09/17/2024 6:51 PM [facility] Anion Gap 6 3 - 11 LAB CHEMISTRY METHOD 09/17/2024 6:51 PM [facility] Glucose 105(H) 70 - 100 mg/dL LAB CHEMISTRY METHOD 09/17/2024 6:51 PM [facility] BUN 26(H) 5 - 25 mg/dL LAB CHEMISTRY METHOD 09/17/2024 6:51 PM [facility] Creatinine 1.16 0.70 - 1.30 mg/dL LAB CHEMISTRY METHOD 09/17/2024 6:51 PM [facility] eGFR 72 >=60 mL/min/1. 73m2 LAB CHEMISTRY METHOD 09/17/2024 6:51 PM [facility] Comment:Calculation based on the??Chronic Kidney Disease Epidemiology Collaboration (CKD-EPI) equation refit??without adjustment for race. BUN/Creatinine Ratio 22.4 LAB CHEMISTRY METHOD 09/17/2024 6:51 PM [facility] Calcium 9.2 8.5 - 10.5 mg/dL LAB CHEMISTRY METHOD 09/17/2024 6:51 PM [facility] AST (SGOT) 9(L) 10 - 42 unit/L LAB CHEMISTRY METHOD 09/17/2024 6:51 PM [facility] ALT (SGPT) 15 10 - 60 unit/L LAB CHEMISTRY METHOD 09/17/2024 6:51 PM [facility] Alkaline Phosphatase 75 42 - 121 unit/L LAB CHEMISTRY METHOD 09/17/2024 6:51 PM [facility] Total Protein 6.9 6.0 - 8.0 g/dL LAB CHEMISTRY METHOD 09/17/2024 6:51 PM [facility] Albumin 4.2 3.2 - 5.0 g/dL LAB CHEMISTRY METHOD 09/17/2024 6:51 PM [facility] Total Bilirubin 0.5 0.0 - 1.4 mg/dL LAB CHEMISTRY METHOD 09/17/2024 6:51 PM [facility] Blood Venous blood specimen / Unknown Venipuncture / Unknown 09/17/2024 12:50 PM EST 09/17/2024 12:50 PM EST us Jose Alberto PHILLIPS LAB BLOOD ORDERABLES Jimena victor Result [facility] [address] [place] [address], * CT LUNG SCREENING LOW DOSE (07/17/2024 8:53 AM EDT) Anatomical Region Laterality Modality Computed Tomogra phy 07/16/2024 11:1 8 AM EDT Narrative 07/17/2024 8:53 AM EDT [facility] Diagnostic Imaging Department [address] [place] [address] Patient: ??JANEY CURRIE ?/Age/Sex: 1965 - 59 - M Unit#: ??[id number] ? Location/Status: ??SPDICATLS/REG CLI ? Mnemonic/Ordering Site: ??CTLUNGLD/SPCT Ordering Physician: ??JENIFER FRYE MD CT Lung Screening Low Dose - 07/16/24 - 1123 Report Status:Signed History: ??59 year-old 46 pack-year current smoker, asymptomatic, for lung cancer screening. Comparison: 07/05/23, 06/27/18 Technique: Helical volumetric imaging of the thorax was performed, using low- dose technique, without IV contrast. DLP: 112.58 mGy/cm ??CTDIvol: 3.22 mGy GoSquared VCT Iterative reconstruction technique Findings: Lungs and Airways: The trachea and central bronchial tree remain patent. Patchy centrilobular emphysema is noted. A triangular perifissural nodule in the right middle lobe is unchanged dating back to 2018, possibly a lymph node, considered benign. Subsegmental atelectasis in the right middle lobe is also stable from the previous studies. There are rare sub-4 mm pulmonary nodules, without significant change. No suspicious developing pulmonary nodule is seen. Pleura: No pleural or pericardial effusions are identified. Base of neck, mediastinum and heart: The heart remains normal in size. Mild atherosclerotic calcification of the thoracic aorta is seen. No developing thoracic lymphadenopathy is noted. No suspicious thyroid nodule is noted. Soft tissues: The overlying soft tissues are unremarkable. Abdomen: This study was performed without contrast and with lower than standard dose. These factors reduce the sensitivity for detection of small lesions in the upper abdomen. A 2 mm nonobstructing calculus is seen in the upper pole the right kidney. Impression: No suspicious developing pulmonary nodule. No significant change. Lung RADS 2: Benign Appearance or Behavior - Continue annual screening with LDCT in 12 months. [id number] [id number] Dictating Physician: ??LESLIE JUAREZ MD Electronically Signed by: ??LESLIE JUAREZ MD Dic Date/Time: ??07/17/24 0843 Sign date/Time: ??07/17/24 0853 Procedure Note Leslie Juarez MD - 07/21/2024 [facility] Diagnostic Imaging Department [address] [place] [id number] Patient: JANEY CURRIEO.B./Age/Sex: 1965 - 59 - M Unit#: [id number] Location/Status: SPDICATLS/REG CLI Mnemonic/Ordering Site: [facility] Ordering Physician: JENIFER FRYE MD CT Lung Screening Low Dose - 07/16/24 - 1123 Report Status:Signed History: 59 year-old 46 pack-year current smoker, asymptomatic, for lungcancer screening. Comparison: 07/05/23, 06/27/18 Technique: Helical volumetric imaging of the thorax was performed, usinglow- dose technique, without IV contrast. DLP: 112.58 mGy/cm CTDIvol: 3.22 mGy GoSquared VCT Iterative reconstruction technique Findings: Lungs and Airways: The trachea and central bronchial tree remain patent.Patchy centrilobular emphysema is noted. A triangular perifissural nodule in theright middle lobe is unchanged dating back to 2018, possibly a lymph node,considered benign. Subsegmental atelectasis in the right middle lobe is also stablefrom the previous studies. There are rare sub-4 mm pulmonary nodules, without significant change. No suspicious developing pulmonary nodule is seen. Pleura: No pleural or pericardial effusions are identified. Base of neck, mediastinum and heart: The heart remains normal in size.Mild atherosclerotic calcification of the thoracic aorta is seen. Nodeveloping thoracic lymphadenopathy is noted. No suspicious thyroid nodule isnoted. Soft tissues: The overlying soft tissues are unremarkable. Abdomen: This study was performed without contrast and with lower thanstandard dose. These factors reduce the sensitivity for detection of small lesionsin the upper abdomen. A 2 mm nonobstructing calculus is seen in the upper polethe right kidney. Impression: No suspicious developing pulmonary nodule. No significant change. Lung RADS 2: Benign Appearance or Behavior - Continue annual screeningwith LDCT in 12 months. [id number] [id number] [id number] Dictating Physician: LESLIE JUAREZ MD Electronically Signed by: LESLIE JUAREZ MD Dic Date/Time: 07/17/2443 Sign date/Time: 07/17/24 0853 Result [facility] Jenifer Frye MD IMG CT PROCEDURES Final Result * Depression Screening (06/11/2024) Depression Screening Abstracted Historical Provider HEALTH MAINTENANCE Final Result * Hepatitis C Screening (02/01/2018) Hepatitis C Screening Abstracted Historical Provider HEALTH MAINTENANCE Final Result from Last 3 Months or Most Recently Relevant to Health Maintenance Insurance [employer] MEDICARE Advance Directives Documents on File Type Date Recorded Patient Veterinary Technician Assistant Expl anation Health Care Decision (hx) 07/21/2023 HE ALTH CARE PROXY Health Care Decision (hx) 07/21/2023 HE ALTH CARE PROXY Health Care Decision (hx) 07/21/2023 HE ALTH CARE PROXY Health Care Decision (hx) 12/11/2020 GO FOSTER DIRECTIVE Care Teams Channel Business Manager Relationship Specialty Start Date End Date Jose Alberto Palacio PA [address] [place] [address] PCP - General Internal Medicine 09/17/24
--- OUTSIDE RECORDS SUMMARY | 2024-12-12 16:22 | XMS_ITS | Encounter Summary ---
Author Organization [facility] Address [address] [place] [address] Care Team Providers Care Cnc Wood Lathe Operator Name Role Phone Jose Alberto Palacio PA-C Primary Care Provider + [phone] Chad Pino MD Unavailable [phone] Aggie Magaña MD Unavailable [phone] Lizzette Paul PA-C Unavailable [phone] Rich Interiano PA-C Unavailable [phone] Encounter Details Date Type Department Care Team Description 08/31/2023 Etched Circuit Processor Report Medical Records [address] [place] [address] Allan Luna PA-C Social History Tobacco Use Types Packs/Day [...] on filedocumented in this encounter Care Teams Cnc Wood Lathe Operator Relationship Specialty Start Date End Date Jose Alberto Palacio PA-C [address] [place] [address] [id number] PCP - General Internal Medicine 04/15/21 Chad Pino MD [address] [place] [address] Specialist Cardiology 07/27/22 Aggie Magaña MD [address] [address] Surgeon Neurosurgery 10/11/23 Lizzette Paul PA-C [address] [address] Specialist Neurosurgery 10/11/23 Rich Interiano PA-C [address] [address] Specialist Neurosurgery 10/11/23 documented as of this encounter
--- OUTSIDE RECORDS SUMMARY | 2024-12-12 16:22 | XMS_ITS | Clinical Summary ---
Author Organization [facility] Address [address] [place] [address] Care Team Providers Care Bridge Opener Name Role Phone Jose Alberto Palacio PA-C Primary Care Provider Allergies Active Allergy Reactions Criticality Noted Date Comments Naproxen 04/05/2023 Medications Medication Sig Dispensed Refills Start Date End Date Status omeprazole (PriLOSEC) 20 MG capsule Take 1 capsule (20 mg total) by mouth daily. 0 Active traMADol (ULTRAM) 50 MG tablet Take 50 mg by mouth every 6 (six) hours as needed for pain. 0 Active gabapentin (NEURONTIN) 300 MG capsule Take 2 capsules (600 mg total) by mouth 3 (three) times a day. 0 Active clotrimazole (LOTRIMIN) 1 % cream Apply topically 2 (two) times a day. 0 Active traZODone (DESYREL) 100 MG tablet Take 1.5 tablets (150 mg total) by mouth every night at bedtime. 0 Active escitalopram (LEXAPRO) 20 MG tablet Take 1 tablet (20 mg total) by mouth daily. 0 Active atorvastatin (LIPITOR) tablet 20 mg Take 1 tablet (20 mg total) by mouth daily. 0 Active busPIRone (BUSPAR) 5 MG tablet Take 1 tablet (5 mg total) by mouth 3 (three) times a day. 0 Active aspirin 81 MG chewable tablet Chew 1 tablet (81 mg total) by mouth daily. 0 Active amLODIPine (NORVASC) tablet 5 mg Take 1 tablet (5 mg total) by mouth daily. 0 Active predniSONE (DELTASONE) tablet 20 mg Take by mouth. 0 Active celecoxib (CeleBREX) 200 MG capsule Take 1 capsule (200 mg total) by mouth daily. 0 Active formoterol (PERFOROMIST) 20 MCG/2ML nebulizer solution Take 2 mL (20 mcg total) by nebulization every 12 (twelve) hours. 0 Active methotrexate 2.5 MG tablet Take 1 tablet (2.5 mg total) by mouth 3 (three) times a week. 0 Active OXYGEN-HELIUM IN Inhale 2 L into the lungs every night at bedtime. 0 Active ipratropium-albuter ol (DUO-NEB) 0.5-2.5 mg/mL nebulizer Inhale 3 mL into the lungs. 0 Active Active Problems Problem Noted Date Diagnosed Date Neutrophilia 04/05/2023 Social History Tobacco Use Types Packs/Day Years Used Date Smoking Tobacco: Never Assessed Overall Financial Resource Strain (CARDIA) Answe r Date Recorded How hard is it for you to pa y for the very basics like food, housing, medical care, and heating? Not very hard 08/03/2023 Sex and Gender Information Value Date Recorded Sex Assigned at Not on file Gender Identity Not on file Sexual Orientation Not on file Job Start Date Occupation Industry Not on file Not on file Not on file Last Filed Vital Signs Vital Sign Reading Time Taken Comments Blood Pressure 129/72 04/05/2023 2:15 PM EDT Pulse 97 04/05/2023 2:15 PM EDT Temperature 36.9 ??C (98.5 ??F) 04/05/2023 2:15 PM ED T Respiratory Rate - - Oxygen Saturation 98% 04/05/2023 2:15 PM EDT Inhaled Oxygen Concentration - - Weight 70.3 kg (155 lb) 04/05/2023 2:15 PM EDT Height 172.7 cm (5' 8 ) 04/05/2023 2:15 PM EDT Body Mass Index 23.57 04/05/2023 2:15 PM EDT Plan of Treatment Health Maintenance Due Date Last Done Comments Hepatitis C Screening 1963 Pneumococcal Vaccine (1 of 2 - PCV) 1969 Depression Screening 1975 Preventative Health Evaluation 1981 DTap / Tdap / Td (1 - Tdap) 1982 Shingrix-Zoster Vaccine (1 o f 2) 1982 Colon Cancer Screening (Colonoscopy) 2008 RSV Adult > 60+ Yrs or (1 - Risk 60-74 years 1-dose series) 2023 COVID-19 Vaccine (4 - 2023-2 5 season) 2024 08/31/2021, 02/11/2021, 01/21/2021 Influenza Vaccine (#1) 2024 Hepatitis B Vaccines Aged Out No long er eligible based on patient's age to complete this topic RSV Ped < 20 months Aged Out No longe r eligible based on patient's age to complete this topic Care Teams Bridge Opener Relationship Specialty Start Date End Date Jose Alberto Palacio PA-C PCP - General Medical Services 03/03/23
--- OUTSIDE RECORDS SUMMARY | 2024-12-12 16:22 | XMS_ITS | Encounter Summary ---
Author Organization [facility] Address [address] [place] [address] Care Team Providers Care Pharm Tech Name Role Phone Jose Alberto Palacio PA-C Primary Care Provider [phone] Chad Pino MD Unavailable [phone] Aggie Magaña MD Unavailable [phone] Lizzette Paul PA-C Unavailable [phone] Rich Interiano PA-C Unavailable [phone] Encounter Details Date Type Department Care Team Description 07/08/2021 Orders Only Medical Records [address] [place] [address] Abstract, Provider Social History Tobacco Use Types [...] have Coronavirus / COVID-19? No / Unsure 06/23/2021 7:36 AM EDT documented as of this encounter Plan of Treatment Not on file documented as of this encounter Procedures Procedure Name Priority Date/Time Associated Diagnosis Comments OUTSIDE OXIMETRY Routine 06/11/2021 documented in this encounter Results * OUTSIDE OXIMETRY (06/11/2021) Mami Valentine APRN PULMONOLOGY documented in this encounter Visit Diagnoses Not on filedocumented in this encounter Care Teams Pharm Tech Relationship Specialty Start Date End Date Jose Alberto Palacio PA-C [address] [place] [address] PCP - General Internal Medicine 04/15/21 Chad Pino MD [address] [place] [address] Specialist Cardiology 07/27/22 Aggie Magaña MD [address] [address] Surgeon Neurosurgery 10/11/23 Lizzette Paul PA-C [address] [address] Specialist Neurosurgery 10/11/23 Rich Interiano PA-C [address] [address] Specialist Neurosurgery 10/11/23 documented as of this encounter
--- OUTSIDE RECORDS SUMMARY | 2024-12-12 16:22 | XMS_ITS | Encounter Summary ---
Author Organization [facility] Address [address] [place] [address] Care Team Providers Care Surveying Teacher Name Role Phone Tina Suarez MD Primary Care Provider Unavail able Jose Alberto Palacio PA-C Primary Care Provider [phone] Chad Pino MD Unavailable [phone] Aggie Magaña MD Unavailable [phone] Lizzette Paul PA-C Unavailable [phone] Rich Interiano PA-C Unavailable [phone] Encounter Details Date Type Department Care Team Description 11/13/2018 [facility] Medical Records [address] [place] [address] Mei Singh MD Social History Tobacco Use Types Packs/Day [...] on filedocumented in this encounter Care Teams Surveying Teacher Relationship Specialty Start Date End Date Tina Suarez MD PCP - General Internal Medicine 01/31/18 04/14/21 Jose Alberto Palacio PA-C [address] [place] [address] PCP - General Internal Medicine 04/15/21 Chad Pino MD [address] [place] [address] Specialist Cardiology 07/27/22 Aggie Magaña MD [address] [address] Surgeon Neurosurgery 10/11/23 Lizzette Paul PA-C [address] [address] Specialist Neurosurgery 10/11/23 Rich Interiano PA-C [address] [address] Specialist Neurosurgery 10/11/23 documented as of this encounter
--- OUTSIDE RECORDS SUMMARY | 2024-12-12 16:22 | XMS_ITS | Encounter Summary ---
Author Organization [facility] Address [address] [place] [address] Care Team Providers Care Senior Dot Net Developer Name Role Phone Jose Alberto Palacio PA-C Primary Care Provider [phone] Chad Pino MD Unavailable [phone] Aggie Magaña MD Unavailable [phone] Lizzette Paul PA-C Unavailable [phone] Rich Interiano PA-C Unavailable [phone] Encounter Details Date Type Department Care Team Description 09/02/2022 SCAN Cardio [facility] [address] [facility] [address] [place] [address] Abstract, Provider Social History Tobacco Use Types [...] suspected to have Coronavirus/COVID-19? No / Unsure 08/11/2022 9:05 AM EST documented as of this encounter Plan of Treatment Not on file documented as of this encounter Visit Diagnoses Not on filedocumented in this encounter Care Teams Senior Dot Net Developer Relationship Specialty Start Date End Date Jose Alberto Palacio PA-C [address] [place] [address] PCP - General Internal Medicine 04/15/21 Chad Pino MD [address] [place] [address] Specialist Cardiology 07/27/22 Aggie Magaña MD [address] [address] Surgeon Neurosurgery 10/11/23 Lizzette Paul PA-C [address] [address] Specialist Neurosurgery 10/11/23 Rich Interiano PA-C [address] [address] Specialist Neurosurgery 10/11/23 documented as of this encounter
--- OUTSIDE RECORDS SUMMARY | 2024-12-12 16:22 | XMS_ITS | Encounter Summary ---
Author Organization [facility] Address [address] [place] [address] Care Team Providers Care Lead Custodian Name Role Phone Jose Alberto Palacio Primary Care Provider [phone] Encounter Details Date Type Department Care Team (Late Contact Info) Description 10/22/2024 Telephone Adult Medicine [facility] [address] [place], [place] [phone] Jose Alberto Palacio PA [address] [place] [address] Social History Tobacco Use Types Packs/Day Years [...] 8:45 AM EDT Office Visit Adult Medicine [facility] [address] [place], [place] [phone] Jose Alberto Palacio PA [address] [place] [address] 02/06/2025 3:00 PM EDT Office Visit Pulmonolgy - [place] [address] [phone] Mami Valentine NP [address] [address] documented as of this encounter Visit Diagnoses Not on filedocumented in this encounter Care Teams Lead Custodian Relationship Specialty Start Date End Date Jose Alberto Palacio PA [address] [place] [address] PCP - General Internal Medicine 09/17/24 documented as of this encounter
--- OUTSIDE RECORDS SUMMARY | 2024-12-12 16:22 | XMS_ITS | Encounter Summary ---
Author Organization [facility] Address [address] [place] [address] Care Team Providers Care Shellac Polisher Name Role Phone Jose Alberto Palacio Primary Care Provider [phone] Reason for Visit * Reason Onset Date Comments durable medical equipment 12/03/2024 Encounter Details Date Type Department Care Team (Late st Contact Info) Description 12/03/2024 Telephone Pulmonolgy - [place] 175 [facility] [address] [place] [phone] Mami Valentine, KEV [address] [facility] [address] [place] [address] durable medical equipment Social History Tobacco Use Types Packs/Day Years [...] PM EST documented as of this encounter Progress Notes * Manish Osuna - 12/03/2024 4:13 PM EDT Confirmation of order received via fax from [facility]. Forms on patient chart (ONBASE). documented in this encounter Plan of Treatment Upcoming Encounters Date Type Department Care Team (Late st Contact Info) Description 12/18/2024 8:45 AM EDT Office Visit Adult Medicine [facility] [address] [place] [address] Jose Alberto Palacio PA [address] [place] [address] 02/06/2025 3:00 PM EDT Office Visit Pulmonolgy - [place] 175 [facility] [address] [place] [phone] Mami Valentine NP 175 [facility] [address] [place] [address] documented as of this encounter Visit Diagnoses Not on filedocumented in this encounter Care Teams Shellac Polisher Relationship Specialty Start Date End Date Jose Alberto Palacio PA [address] [place] [address] PCP - General Internal Medicine 09/17/24 documented as of this encounter
--- OUTSIDE RECORDS SUMMARY | 2024-12-12 16:22 | XMS_ITS | Encounter Summary ---
Author Organization [facility] Address [address] [place] [address] Care Team Providers Care Stamp Maker Name Role Phone Jose Alberto Palacio PA-C Primary Care Provider [phone] Chad Pino MD Unavailable [phone] Aggie Magaña MD Unavailable [phone] Lizzette Paul PA-C Unavailable [phone] Rich Interiano PA-C Unavailable [phone] Encounter Details Date Type Department Care Team Description 06/01/2023 Manager Report Report Medical Records [address] [place] [address] Allan Luna PA-C Social History Tobacco Use [...] suspected to have Coronavirus/COVID-19? No / Unsure 05/30/2023 3:07 PM EDT documented as of this encounter Plan of Treatment Not on file documented as of this encounter Visit Diagnoses Not on filedocumented in this encounter Care Teams Stamp Maker Relationship Specialty Start Date End Date Jose Alberto Palacio PA-C [address] [place] [address] PCP - General Internal Medicine 04/15/21 Chad Pino MD [address] [place] [address] Specialist Cardiology 07/27/22 Aggie Magaña MD [address] [address] Surgeon Neurosurgery 10/11/23 Lizzette Paul PA-C [address] [address] Specialist Neurosurgery 10/11/23 Rich Interiano PA-C [address] [address] Specialist Neurosurgery 10/11/23 documented as of this encounter
--- OUTSIDE RECORDS SUMMARY | 2024-12-12 16:22 | XMS_ITS | Encounter Summary ---
Author Organization [facility] Address [address] [place] [address] Care Team Providers Care Resource Teacher Name Role Phone Jose Alberto Palacio PA-C Primary Care Provider [phone] Chad Pino MD Unavailable [phone] Aggie Magaña MD Unavailable [phone] Lizzette Paul PA-C Unavailable [phone] Rich Interiano PA-C Unavailable Reason for Visit * Reason Comments E-prescribe Rx Request Encounter Details Date Type Department Care Team Description 03/15/2023 Refill Pulmonology - [place] 175 [facility] [address] [place] [phone] Mami Valentine APRN 175 [facility] [address] [place] [address] E-prescribe Rx Request Social History Tobacco Use Types Packs/Day Years [...] suspected to have Coronavirus/COVID-19? No / Unsure 02/16/2023 10:49 AM EDT documented as of this encounter Plan of Treatment Not on file documented as of this encounter Visit Diagnoses Diagnosis Chronic obstructive pulmonary disease, unspecified COPD type (HCC) Centrilobular emphysema (HCC) Other emphysema Stage 2 moderate COPD by GOLD classification (HCC) Pulmonary emphysema, unspecified emphysema type (HCC) documented in this encounter Care Teams Resource Teacher Relationship Specialty Start Date End Date Jose Alberto Palacio PA-C [address] [place] [address] PCP - General Internal Medicine 04/15/21 Chad Pino MD [address] [place] [address] Specialist Cardiology 07/27/22 Aggie Magaña MD [address] [address] Surgeon Neurosurgery 10/11/23 Lizzette Paul PA-C [address] [address] Specialist Neurosurgery 10/11/23 Rich Interiano PA-C [address] [address] Specialist Neurosurgery 10/11/23 documented as of this encounter
--- OUTSIDE RECORDS SUMMARY | 2024-12-12 16:22 | XMS_ITS | Encounter Summary ---
Author Organization [facility] Address [address] [place] [address] Care Team Providers Care Hand Nailer Name Role Phone Jose Alberto Palacio PA-C Primary Care Provider [phone] Chad Pino MD Unavailable [phone] Aggie Magaña MD Unavailable [phone] Lizzette Paul PA-C Unavailable [phone] Rich Interiano PA-C Unavailable [phone] Encounter Details Date Type Department Care Team Description 04/28/2023 [facility] Medical Records [address] [place] [address] Abstract, Provider Social History Tobacco Use Types [...] suspected to have Coronavirus/COVID-19? No / Unsure 04/26/2023 8:23 AM EDT documented as of this encounter Plan of Treatment Not on file documented as of this encounter Visit Diagnoses Not on filedocumented in this encounter Care Teams Hand Nailer Relationship Specialty Start Date End Date Jose Alberto Palacio PA-C [address] [place] [address] PCP - General Internal Medicine 04/15/21 Chad Pino MD [address] [place] [address] Specialist Cardiology 07/27/22 Aggie Magaña MD [address] [address] Surgeon Neurosurgery 10/11/23 Lizzette Paul PA-C [address] [address] Specialist Neurosurgery 10/11/23 Rich Interiano PA-C [address] [address] Specialist Neurosurgery 10/11/23 documented as of this encounter
--- OUTSIDE RECORDS SUMMARY | 2024-12-12 16:22 | XMS_ITS | Encounter Summary ---
Author Organization [facility] Address [address] [place] [address] Care Team Providers Care Senior It Business Analyst Name Role Phone Tina Suarez MD Primary Care Provider Unavail able Jose Alberto Palacio PA-C Primary Care Provider + [phone] Chad Pino MD Unavailable [phone] Aggie Magaña MD Unavailable [phone] Lizzette Paul PA-C Unavailable [phone] Rich Interiano PA-C Unavailable [phone] Encounter Details Date Type Department Care Team Description 06/28/2019 Engineering Technology Instructor Report Medical Records [address] [place], [place] [phone] [place] [address] Social History Tobacco Use Types Packs/Day Years [...] filedocumented in this encounter Care Teams Senior It Business Analyst Relationship Specialty Start Date End Date Tina Suarez MD PCP - General Internal Medicine 01/31/18 04/14/21 Jose Alberto Palacio PA-C [address] [place] [address] PCP - General Internal Medicine 04/15/21 Chad Pino MD 4 [place] [address] Specialist Cardiology 07/27/22 Aggie Magaña MD [address] [address] Surgeon Neurosurgery 10/11/23 Lizzette Paul PA-C [address] [address] Specialist Neurosurgery 10/11/23 Rich Interiano PA-C [address] [address] Specialist Neurosurgery 10/11/23 documented as of this encounter
--- OUTSIDE RECORDS SUMMARY | 2024-12-12 16:22 | XMS_ITS | Encounter Summary ---
Author Organization [facility] Address [address] [place] [address] Care Team Providers Care Case Work Aide Name Role Phone Jose Alberto Palacio PA-C Primary Care Provider [phone] Chad Pino MD Unavailable [phone] Aggie Magaña MD Unavailable [phone] Lizzette Paul PA-C Unavailable [phone] Rich Interiano PA-C Unavailable [phone] Encounter Details Date Type Department Care Team Description 09/15/2022 Picking Machine Operator Report Medical Records [address] [place] [address] Fatou Skinner Social History Tobacco Use Types Packs/Day Years [...] on filedocumented in this encounter Care Teams Case Work Aide Relationship Specialty Start Date End Date Jose Alberto Palacio PA-C [address] [place] [address] PCP - General Internal Medicine 04/15/21 Chad Pino MD [address] [place] [address] Specialist Cardiology 07/27/22 Aggie Magaña MD [address] [address] Surgeon Neurosurgery 10/11/23 Lizzette Paul PA-C [address] [address] Specialist Neurosurgery 10/11/23 Rich Interiano PA-C [address] [address] Specialist Neurosurgery 10/11/23 documented as of this encounter
--- OUTSIDE RECORDS SUMMARY | 2024-12-12 16:22 | XMS_ITS | Encounter Summary ---
Author Organization [facility] Address [address] [place] [address] Care Team Providers Care Promotional Marketing Analyst Name Role Phone Jose Alberto Palacio PA-C Primary Care Provider + [phone] Chad Pino MD Unavailable [phone] Aggie Magaña MD Unavailable [phone] Lizzette Paul PA-C Unavailable [phone] Rich Interiano PA-C Unavailable [phone] Encounter Details Date Type Department Care Team Description 11/16/2023 Record Systems Analyst Report Medical Records [address] [place] [address] Allan Luna PA-C Social History Tobacco Use [...] on filedocumented in this encounter Care Teams Promotional Marketing Analyst Relationship Specialty Start Date End Date Jose Alberto Palacio PA-C [address] [place] [id number] PCP - General Internal Medicine 04/15/21 Chad Pino MD [address] [place] [address] Specialist Cardiology 07/27/22 Aggie Magaña MD [address] [address] Surgeon Neurosurgery 10/11/23 Lizzette Paul PA-C [address] [address] Specialist Neurosurgery 10/11/23 Rich Interiano PA-C [address] [address] Specialist Neurosurgery 10/11/23 documented as of this encounter
--- OUTSIDE RECORDS SUMMARY | 2024-12-12 16:22 | XMS_ITS | Encounter Summary ---
Author Organization [facility] Address [address] [place] [address] Care Team Providers Care Die Cutter Diamond Name Role Phone Jose Alberto Palacio PA-C Primary Care Provider [phone] Chad Pino MD Unavailable [phone] Aggie Magaña MD Unavailable [phone] Lizzette aPul PA-C Unavailable [phone] Rich Interiano PA-C Unavailable [phone] Reason for Visit * Reason Onset Date Comments DME Request 07/28/2023 Encounter Details Date Type Department Care Team Description 07/28/2023 Telephone Pulmonology - [place] 175 [facility] 200 [place] [address] Maim Valentine APRN 175 [facility] [address] [place] [address] DME Request Social History Tobacco Use Types Packs/Day [...] suspected to have Coronavirus/COVID-19? No / Unsure 07/18/2023 2:34 PM EDT documented as of this encounter Miscellaneous Notes * Telephone Encounter - Chaim Vincent - 07/28/2023 3:22 PM EST Fax from [facility] . Oxygen Therapy swo. [employer] documented in this encounter Plan of Treatment Not on file documented as of this encounter Visit Diagnoses Not on filedocumented in this encounter Care Teams Die Cutter Diamond Relationship Specialty Start Date End Date Jose Alberto Palacio PA-C [address] [place] [address] PCP - General Internal Medicine 04/15/21 Chad Pino MD [address] [place] [address] Specialist Cardiology 07/27/22 Aggie Magaña MD [address] [address] Surgeon Neurosurgery 10/11/23 Lizzette Paul PA-C [address] [address] Specialist Neurosurgery 10/11/23 Rich Interiano PA-C [address] [address] Specialist Neurosurgery 10/11/23 documented as of this encounter
--- OUTSIDE RECORDS SUMMARY | 2024-12-12 16:22 | XMS_ITS | Encounter Summary ---
Author Organization [facility] Address [address] [place] [address] Care Team Providers Care Partner Manager Name Role Phone Jose Alberto Palacio PA-C Primary Care Provider [phone] Chad Pino MD Unavailable [phone] Aggie Magaña MD Unavailable [phone] Lizzette Paul PA-C Unavailable [phone] Rich Interiano PA-C Unavailable [phone] Encounter Details Date Type Department Care Team Description 10/12/2023 SCAN [facility] Neurosurgery [place] [address] [address] Lizzette Paul PA-C [address] [id number] Social History Tobacco Use Types Packs/Day Years [...] on filedocumented in this encounter Care Teams Partner Manager Relationship Specialty Start Date End Date Jose Alberto Palacio PA-C [address] [place] [address] PCP - General Internal Medicine 04/15/21 Chad Pino MD [address] [place] [address] Specialist Cardiology 07/27/22 Aggie Magaña MD [address] [address] Surgeon Neurosurgery 10/11/23 Lizzette Paul PA-C [address] [address] Specialist Neurosurgery 10/11/23 Rich Interiano PA-C [address] [address] Specialist Neurosurgery 10/11/23 documented as of this encounter
--- OUTSIDE RECORDS SUMMARY | 2024-12-12 16:22 | XMS_ITS | Encounter Summary ---
Author Organization [facility] Address [address] [place] [address] Care Team Providers Care Popcorn Candy Maker Name Role Phone Tina Suarez MD Primary Care Provider Unavail able Jose Alberto Palacio PA-C Primary Care Provider [phone] Chad Pino MD Unavailable [phone] Aggie Magaña MD Unavailable [phone] Lizzette Paul PA-C Unavailable [phone] Rich Interiano PA-C Unavailable [phone] Reason for Visit * Reason Onset Date Comments medication problems 01/01/2020 Encounter Details Date Type Department Care Team Description 01/01/2020 Telephone Pulmonology - [place] 175 [facility] [address] [place] [address] Latrell Tate MD 175 [facility] [address] [place] [address] medication problems Social History Tobacco Use Types Packs/Day Years [...] on file documented as of this encounter Miscellaneous Notes * Telephone Encounter - Latrell Tate MD - 01/02/2020 12:48 PM EDT Reordered it * Telephone Encounter - Marisela Victoria - 01/01/2020 12:35 PM EDT What is the name of the medication patient is having a problem with?: I Ipratropium albuterol What is the problem?: need diagnosis code Is the patient calling about the problem? NO If the patient is not the caller who is? pharmacy Is this a NEW medication?: NO How long has the patient been taking this medication? na Who prescribed this medication for the patient? Dr. Dc Who is patients PCP?: Dr. suarez Payor: MEDICARE-Jobr / Plan: MEDICARE-Jobr / Product Type: MEDICARE [id number] documented in this encounter Plan of Treatment Not on file documented as of this encounter Visit Diagnoses Diagnosis Stage 2 moderate COPD by GOLD classification (HCC)- Primary Centrilobular emphysema (HCC) Other emphysema Pulmonary emphysema, unspecified emphysema type (HCC) documented in this encounter Care Teams Popcorn Candy Maker Relationship Specialty Start Date End Date Tina Suarez MD PCP - General Internal Medicine 01/31/18 04/14/21 Jose Alberto Palacio PA-C [address] [place] [address] PCP - General Internal Medicine 04/15/21 Chad Pino MD [address] [place] [address] Specialist Cardiology 07/27/22 Aggie Magaña MD [address] [address] Surgeon Neurosurgery 10/11/23 Lizzette Paul PA-C [address] [address] Specialist Neurosurgery 10/11/23 Rich Interiano PA-C 175 [facility] [address] [place] [address] Specialist Neurosurgery 10/11/23 documented as of this encounter
--- OUTSIDE RECORDS SUMMARY | 2024-12-12 16:22 | XMS_ITS | Encounter Summary ---
Author Organization [facility] Address [address] [place] [address] Care Team Providers Care Manager It Security Name Role Phone Tina Suarez MD Primary Care Provider Unavail able Jose Alberto Palacio PA-C Primary Care Provider [phone] Chad Pino MD Unavailable [phone] Aggie Magaña MD Unavailable [phone] Lizzette Paul PA-C Unavailable [phone] Rich Interiano PA-C Unavailable [phone] Encounter Details Date Type Department Care Team Description 11/12/2018 Carbon Brusher Assembler Report Medical Records [address] [place] [address] David Norman MD Social History Tobacco Use Types Packs/Day Years Used Date Smoking Tobacco: Every Day Cigarettes 1 35 Smokeless Tobacco: Never Alcohol Use Standard [...] on filedocumented in this encounter Care Teams Manager It Security Relationship Specialty Start Date End Date Tina Suarez MD PCP - General Internal Medicine 01/31/18 04/14/21 Jose Alberto Palacio PA-C [address] [place] [id number] PCP - General Internal Medicine 04/15/21 Chad Pino MD 4 [place] [address] Specialist Cardiology 07/27/22 Aggie Magaña MD [address] [address] Surgeon Neurosurgery 10/11/23 Lizzette Paul PA-C [address] [address] Specialist Neurosurgery 10/11/23 Rich Interiano PA-C [address] [address] Specialist Neurosurgery 10/11/23 documented as of this encounter
--- OUTSIDE RECORDS SUMMARY | 2024-12-12 16:22 | XMS_ITS | Encounter Summary ---
Author Organization [facility] Address [address] [place] [address] Care Team Providers Care Limousine Rental Clerk Name Role Phone Jose Alberto Palacio PA-C Primary Care Provider [phone] Chad Pino MD Unavailable [phone] Aggie Magaña MD Unavailable [phone] Lizzette Paul PA-C Unavailable [phone] Rich Interiano PA-C Unavailable [phone] Encounter Details Date Type Department Care Team Description 06/29/2021 Machine Design Engineer Report Medical Records [address] [place] [address] [facility] [address] [place] [address] Social History Tobacco Use Types Packs/Day Years [...] on filedocumented in this encounter Care Teams Limousine Rental Clerk Relationship Specialty Start Date End Date Jose Alberto Palacio PA-C [address] [place] [address] PCP - General Internal Medicine 04/15/21 Chad Pino MD 444 [place] [address] Specialist Cardiology 07/27/22 Aggie Magaña MD [address] [address] Surgeon Neurosurgery 10/11/23 Lizzette Paul PA-C [address] [address] Specialist Neurosurgery 10/11/23 Rich Interiano PA-C [address] [address] Specialist Neurosurgery 10/11/23 documented as of this encounter
--- OUTSIDE RECORDS SUMMARY | 2024-12-12 16:22 | XMS_ITS | Encounter Summary ---
Author Organization [facility] Address [address] [place] [address] Care Team Providers Care Machine Precision Etcher Name Role Phone Tina Suarez MD Primary Care Provider Unavail able Jose Alberto Palacio PA-C Primary Care Provider [phone] Chad Pino MD Unavailable [phone] Aggie Magaña MD Unavailable [phone] Lizzette Paul PA-C Unavailable [phone] Rich Interiano PA-C Unavailable [phone] Encounter Details Date Type Department Care Team Description 05/05/2018 [facility] Medical Records [address] [place] [address] Shanon Parker NP Social History Tobacco Use Types Packs/Day Years [...] on filedocumented in this encounter Care Teams Machine Precision Etcher Relationship Specialty Start Date End Date Tina Suarez MD PCP - General Internal Medicine 01/31/18 04/14/21 Jose Alberto Palacio PA-C [address] [place] [address] PCP - General Internal Medicine 04/15/21 Chad Pino MD [address] [place] [address] Specialist Cardiology 07/27/22 Aggie Magaña MD [address] [address] Surgeon Neurosurgery 10/11/23 Lizzette Paul PA-C [address] [address] Specialist Neurosurgery 10/11/23 Rich Interiano PA-C [address] [address] Specialist Neurosurgery 10/11/23 documented as of this encounter
--- OUTSIDE RECORDS SUMMARY | 2024-12-12 16:22 | XMS_ITS | Encounter Summary ---
Author Organization [facility] Address [address] [place] [address] Care Team Providers Care Tire Fixer Name Role Phone Tina Suarez MD Primary Care Provider Unavail able Jose Alberto Palacio PA-C Primary Care Provider [phone] Chad Pino MD Unavailable [phone] Aggie Magaña MD Unavailable [phone] Lizzette Paul PA-C Unavailable [phone] Rich Interiano PA-C Unavailable [phone] Encounter Details Date Type Department Care Team Description 05/03/2018 Hospital Medical Records [address] [place] [address] Latrell Tate MD [address] [place] [address] Social History Tobacco Use Types Packs/Day Years [...] on filedocumented in this encounter Care Teams Tire Fixer Relationship Specialty Start Date End Date Tina Suarez MD PCP - General Internal Medicine 01/31/18 04/14/21 Jose Alberto Palacio PA-C [address] [place] [address] PCP - General Internal Medicine 04/15/21 Chad Pino MD [address] [place] [address] Specialist Cardiology 07/27/22 Aggie Magaña MD [address] [address] Surgeon Neurosurgery 10/11/23 Lizzette Paul PA-C [address] [address] Specialist Neurosurgery 10/11/23 Rich Intreiano PA-C [address] [address] Specialist Neurosurgery 10/11/23 documented as of this encounter
--- OUTSIDE RECORDS SUMMARY | 2024-12-12 16:22 | XMS_ITS | Encounter Summary ---
Author Organization [facility] Address [address] [place] [address] Care Team Providers Care Room Maid Name Role Phone Tina Suarez MD Primary Care Provider Unavail able Jose Alberto Palacio PA-C Primary Care Provider [phone] Chad Pino MD Unavailable [phone] Aggie Magaña MD Unavailable [phone] Lizzette Paul PA-C Unavailable [phone] Rich Interiano PA-C Unavailable [phone] Reason for Visit * Reason Onset Date Comments refill request 02/27/2020 Encounter Details Date Type Department Care Team Description 02/27/2020 Refill Adult Medicine [address] [id number] Tina Suarez MD refill request Social History Tobacco Use Types Packs/Day Years [...] encounter Miscellaneous Notes * Telephone Encounter - Leda Rebolledo M.A. - 02/27/2020 2:48 PM EDT Pt last seen by Sarah Mckeon PA-C on 02/04/20 Will you sign? * Telephone Encounter - Mariely Belle - 02/27/2020 12:13 PM EDT Patient would like script to be: E-PRESCRIBED/FAXED TO PHARMACY WHEN WAS THE PATIENT'S LAST APPOINTMENT IN ADULT MEDICINE? 02/04/2020 WHEN WAS THE LAST TIME THE PATIENT SAW THEIR PCP? 12/03/2019 Does patient have an upcoming appointment? Yes 04/03/2020 (THE MEDICATION REQUESTED IS ON THE MED LIST ABOVE) All of the medications requested were on the CURRENT MEDS list Did you check the Pharmacy information above?: YES Patient wants: 90 -day supply Is this a mail order prescription request ? NO If the refill is from a FAXED refill request what is the RX # listed on the fax? N/A Patients current insurance carrier is: [place] / [place] / Product Type: MEDICARE [id number] documented in this encounter Plan of Treatment Not on file documented as of this encounter Visit Diagnoses Not on filedocumented in this encounter Care Teams Room Maid Relationship Specialty Start Date End Date Tina Suarez MD PCP - General Internal Medicine 01/31/18 04/14/21 Jose Alberto Palacio PA-C [address] [place] [address] PCP - General Internal Medicine 04/15/21 Chad Pino MD [address] [place] [address] Specialist Cardiology 07/27/22 Aggie Magaña MD 175 [facility] [address] [place] [address] Surgeon Neurosurgery 10/11/23 Lizzette Paul PA-C [address] [address] Specialist Neurosurgery 10/11/23 Rich Interiano PA-C [address] [facility] [address] [place] [address] Specialist Neurosurgery 10/11/23 documented as of this encounter
--- OUTSIDE RECORDS SUMMARY | 2024-12-12 16:22 | XMS_ITS | Encounter Summary ---
Author Organization [facility] Address [address] [place] [address] Care Team Providers Care Chucking Machine Operator Name Role Phone Jose Alberto Palacio PA-C Primary Care Provider [phone] Chad Pino MD Unavailable [phone] Aggie Magaña MD Unavailable [phone] Lizzette Paul PA-C Unavailable [phone] Rich Interiano PA-C Unavailable [phone] Encounter Details Date Type Department Care Team Description 08/23/2022 Gun Fitter Report Medical Records [address] [place] [address] Mindi Duke MD Social History Tobacco Use Types Packs/Day [...] on filedocumented in this encounter Care Teams Chucking Machine Operator Relationship Specialty Start Date End Date Jose Alberto Palacio PA-C [address] [place] [address] PCP - General Internal Medicine 04/15/21 Chad Pino MD [address] [place] [address] Specialist Cardiology 07/27/22 Aggie Magaña MD [address] [address] Surgeon Neurosurgery 10/11/23 Lizzette Paul PA-C [address] [address] Specialist Neurosurgery 10/11/23 Rich Interiano PA-C [address] [address] Specialist Neurosurgery 10/11/23 documented as of this encounter
--- OUTSIDE RECORDS SUMMARY | 2024-12-12 16:22 | XMS_ITS | Encounter Summary ---
Author Organization [facility] Address [address] [place] [address] Care Team Providers Care Pharmacy Clerk Name Role Phone Tina Suarze MD Primary Care Provider Unavail able Jose Alberto Palacio PA-C Primary Care Provider [phone] Chad Pino MD Unavailable [phone] Aggie Magaña MD Unavailable [phone] Lizzette Paul PA-C Unavailable [phone] Rich Interiano PA-C Unavailable [phone] Encounter Details Date Type Department Care Team Description 11/14/2020 Senior Principal Process Engineer Report Medical Records [address] [place] [address] Abstract, Provider Social History Tobacco Use Types [...] on filedocumented in this encounter Care Teams Pharmacy Clerk Relationship Specialty Start Date End Date Tina Suarez MD PCP - General Internal Medicine 01/31/18 04/14/21 Jose Alberto Palacio PA-C [address] [place] [address] PCP - General Internal Medicine 04/15/21 Chad Pino MD 4 [place] [address] Specialist Cardiology 07/27/22 Aggie Magaña MD [address] [address] Surgeon Neurosurgery 10/11/23 Lizzette Paul PA-C [address] [address] Specialist Neurosurgery 10/11/23 Rich Interiano PA-C [address] [address] Specialist Neurosurgery 10/11/23 documented as of this encounter
--- OUTSIDE RECORDS SUMMARY | 2024-12-12 16:22 | XMS_ITS | Encounter Summary ---
Author Organization [facility] Address [address] [place] [address] Care Team Providers Care Machine Hamper Maker Name Role Phone Jose Alberto Palacio PA-C Primary Care Provider [phone] Chad Pino MD Unavailable [phone] Aggie Magaña MD Unavailable [phone] Lizzette Paul PA-C Unavailable [phone] Rich Interiano PA-C Unavailable Reason for Visit * Reason Onset Date Comments Medication 03/26/2022 Encounter Details Date Type Department Care Team Description 03/26/2022 Telephone Pulmonology - [place] 175 [facility] [address] [place] [address] Mami Valentine APRN 175 [facility] [address] [place] [address] Medication Social History Tobacco Use Types Packs/Day Years [...] In the last 10 days, have rudy bullock been in contact with someone who was confirmed or suspected to have Coronavirus/COVID-19? No / Unsure 03/17/2022 3:45 PM EDT documented as of this encounter Miscellaneous Notes * Telephone Encounter - Queta Chavis - 03/30/2022 1:12 PM EDT [facility] call received to let know that the script they received about the medication Performist its$93 at [facility]. They called the patient and let them a voice mail about it. documented in this encounter Plan of Treatment Not on file documented as of this encounter Visit Diagnoses Not on filedocumented in this encounter Care Teams Machine Hamper Maker Relationship Specialty Start Date End Date Jose Alberto Palacio PA-C [address] [place] [address] PCP - General Internal Medicine 04/15/21 Chad Pino MD [address] [place] [address] Specialist Cardiology 07/27/22 Aggie Magaña MD [address] [address] Surgeon Neurosurgery 10/11/23 Lizzette Paul PA-C [address] [address] Specialist Neurosurgery 10/11/23 Rich Interiano PA-C [address] [address] Specialist Neurosurgery 10/11/23 documented as of this encounter
--- OUTSIDE RECORDS SUMMARY | 2024-12-12 16:22 | XMS_ITS | Encounter Summary ---
Author Organization [facility] Address [address] [place] [address] Care Team Providers Care Pharmacy Technician Trainee Name Role Phone Jose Alberto Palcaio PA-C Primary Care Provider + [phone] Chad Pino MD Unavailable [phone] Aggie Magaña MD Unavailable [phone] Lizzette Paul PA-C Unavailable [phone] Rich Interiano PA-C Unavailable [phone] Encounter Details Date Type Department Care Team Description 09/02/2023 Dobby Loom Fixer Report Medical Records [address] [place] [address] Casey Frank MD Social History Tobacco Use [...] filedocumented in this encounter Care Teams Pharmacy Technician Trainee Relationship Specialty Start Date End Date Jose Alberto Palacio PA-C [address] [place] [id number] PCP - General Internal Medicine 04/15/21 Chad Pino MD [address] [place] [address] Specialist Cardiology 07/27/22 Aggie Magaña MD [address] [address] Surgeon Neurosurgery 10/11/23 Lizzette Paul PA-C [address] [address] Specialist Neurosurgery 10/11/23 Rich Interiano PA-C [address] [address] Specialist Neurosurgery 10/11/23 documented as of this encounter
--- OUTSIDE RECORDS SUMMARY | 2024-12-12 16:22 | XMS_ITS | Encounter Summary ---
Author Organization [facility] Address [address] [place] [address] Care Team Providers Care Completions Engineer Name Role Phone Tina Suarez MD Primary Care Provider Unavail able Jose Alberto Palacio PA-C Primary Care Provider [phone] Chad Pino MD Unavailable [phone] Aggie Magaña MD Unavailable [phone] Lizzette Paul PA-C Unavailable [phone] Rich Interiano PA-C Unavailable [phone] Reason for Visit * Reason Onset Date Comments Error 01/24/2020 Encounter Details Date Type Department Care Team Description 01/24/2020 Telephone Adult [address] [id number] Tina Suarez MD Error Social History Tobacco Use Types Packs/Day Years [...] encounter Miscellaneous Notes * Telephone Encounter - Soo Gu M.A. - 01/24/2020 4:03 PM EDT This encounter was opened in error. documented in this encounter Plan of Treatment Not on file documented as of this encounter Visit Diagnoses Diagnosis ENCOUNTER ENTERED IN ERROR- Primary documented in this encounter Care Teams Completions Engineer Relationship Specialty Start Date End Date Tina Suarez MD PCP - General Internal Medicine 01/31/18 04/14/21 Jose Alberto Palacio PA-C [address] [place] [address] PCP - General Internal Medicine 04/15/21 Chad Pino MD [address] [place] [address] Specialist Cardiology 07/27/22 Aggie Magaña MD [address] [address] Surgeon Neurosurgery 10/11/23 Lizzette Paul PA-C [address] [address] Specialist Neurosurgery 10/11/23 Rich Interiano PA-C [address] [address] Specialist Neurosurgery 10/11/23 documented as of this encounter
--- OUTSIDE RECORDS SUMMARY | 2024-12-12 16:22 | XMS_ITS | Encounter Summary ---
Author Organization [facility] Address [address] [place] [address] Care Team Providers Care Functional Mental Disability Teacher Name Role Phone Jose Alberto Palacio PA-C Primary Care Provider [phone] Chad Pino MD Unavailable [phone] Aggie Magaña MD Unavailable [phone] Lizzette Paul PA-C Unavailable [phone] Rich Interiano PA-C Unavailable Reason for Visit * Reason Onset Date Comments Medication 04/30/2022 Encounter Details Date Type Department Care Team Description 04/30/2022 Telephone Pulmonology - [place] 175 [facility] [address] [place] [address] Mami Valentine APRN 175 [facility] [address] [place] [address] Medication Social History Tobacco Use [...] Miscellaneous Notes * Telephone Encounter - Queta Cota Partha - 04/30/2022 2:53 PM EDT Formoterol Fumarate (Perforomist) 20 MCG/2ML Nilda Headley called today to notify the script needs to be corrected. It should read: ?? 60 ind viles OR 120 ML ?? Fax to: [phone] documented in this encounter Plan of Treatment Not on file documented as of this encounter Visit Diagnoses Not on filedocumented in this encounter Care Teams Functional Mental Disability Teacher Relationship Specialty Start Date End Date Jose Alberto Palacio PA-C [address] [place] [address] PCP - General Internal Medicine 04/15/21 Chad Pino MD [address] [place] [address] Specialist Cardiology 07/27/22 Aggie Magaña MD [address] [address] Surgeon Neurosurgery 10/11/23 Lizzette Paul PA-C [address] [address] Specialist Neurosurgery 10/11/23 Rich Interiano PA-C [address] [address] Specialist Neurosurgery 10/11/23 documented as of this encounter
--- OUTSIDE RECORDS SUMMARY | 2024-12-12 16:22 | XMS_ITS | Encounter Summary ---
Author Organization [facility] Address [address] [place] [address] Care Team Providers Care Slide Fastener Repairer Name Role Phone Jose Alberto Palacio PA-C Primary Care Provider [phone] Chad Pino MD Unavailable [phone] Aggie Magaña MD Unavailable [phone] Lizzette Paul PA-C Unavailable [phone] Rich Interiano PA-C Unavailable Reason for Visit * Reason Comments E-prescribe Rx Request Encounter Details Date Type Department Care Team Description 03/03/2023 Refill Pulmonology - [place] 175 [facility] 200 [place] [id number] Mami Valentine APRN 175 [facility] [address] [place] [address] E-prescribe Rx Request Social History [...] (HCC) documented in this encounter Care Teams Slide Fastener Repairer Relationship Specialty Start Date End Date Jose Alberto Palacio PA-C [address] [place] [address] PCP - General Internal Medicine 04/15/21 Chad Pino MD [address] [place] [address] Specialist Cardiology 07/27/22 Aggie Magaña MD [address] [address] Surgeon Neurosurgery 10/11/23 Lizzette Paul PA-C [address] [address] Specialist Neurosurgery 10/11/23 Rich Interiano PA-C [address] [address] Specialist Neurosurgery 10/11/23 documented as of this encounter
--- OUTSIDE RECORDS SUMMARY | 2024-12-12 16:22 | XMS_ITS | Encounter Summary ---
Author Organization [facility] Address [address] [place] [address] Care Team Providers Care Privacy Specialist Name Role Phone Jose Alberto Palacio PA-C Primary Care Provider [phone] Chad Pino MD Unavailable [phone] Aggie Magaña MD Unavailable [phone] Lizzette Paul PA-C Unavailable [phone] Rich Interiano PA-C Unavailable [phone] Encounter Details Date Type Department Care Team Description 08/11/2022 SCAN Medical Records [address] [place] [address] Abstract, Provider Social History Tobacco Use Types [...] Name Priority Date/Time Associated Diagnosis Comments OUTSIDE LAB Routine 08/11/2022 documented in this encounter Results * OUTSIDE LAB (08/11/2022) Provider Default LAB documented in this encounter Visit Diagnoses Not on filedocumented in this encounter Care Teams Privacy Specialist Relationship Specialty Start Date End Date Jose Alberto Palacio PA-C [address] [place] [address] PCP - General Internal Medicine 04/15/21 Chad Pino MD [address] [place] [address] Specialist Cardiology 07/27/22 Aggie Magaña MD [address] [address] Surgeon Neurosurgery 10/11/23 Lizzette Paul PA-C [address] [address] Specialist Neurosurgery 10/11/23 Rich Interiano PA-C [address] [address] Specialist Neurosurgery 10/11/23 documented as of this encounter
--- OUTSIDE RECORDS SUMMARY | 2024-12-12 16:22 | XMS_ITS | Encounter Summary ---
Author Organization [facility] Address [address] [place] [address] Care Team Providers Care Transfer And Pumphouse Operator Chief Name Role Phone Jose Alberto Palacio PA-C Primary Care Provider [phone] Chad Pino MD Unavailable [phone] Aggie Magaña MD Unavailable [phone] Lizzette Paul PA-C Unavailable [phone] Rich Interiano PA-C Unavailable Encounter Details Date Type Department Care Team Description 05/31/2023 Orders Only [facility] Lung Screening Program [place] [address] [facility] [address] [place] [address] [id number] Nguyễn Dubon MD 299 [facility] Yasir [address] [place] [id number] History of tobacco use, presenting hazards to health (Primary Dx); Encounter for screening for lung cancer Social History Tobacco Use Types Packs/Day Years [...] on file documented as of this encounter Results * CT LOW DOSE LUNG SCREEN ANNUAL (07/05/2023) 07/05/2023 Nguy[address] SCANS documented in this encounter Visit Diagnoses Diagnosis History of tobacco use, presenting hazards to health- Primary Personal history of tobacco use, presenting hazards to health Encounter for screening for lung cancer documented in this encounter Care Teams Transfer And Pumphouse Operator Chief Relationship Specialty Start Date End Date Jos eAlberto Palacio PA-C [address] [place] [address] PCP - General Internal Medicine 04/15/21 Chad Pino MD [address] [place] [address] Specialist Cardiology 07/27/22 Aggie Magaña MD [address] [address] Surgeon Neurosurgery 10/11/23 Lizzette Paul PA-C [address] [address] Specialist Neurosurgery 10/11/23 Rich Interiano PA-C [address] [address] Specialist Neurosurgery 10/11/23 documented as of this encounter
--- OUTSIDE RECORDS SUMMARY | 2024-12-12 16:22 | XMS_ITS | Encounter Summary ---
Author Organization [facility] Address [address] [place] [address] Care Team Providers Care Content Producer Name Role Phone Jose Alberto Palacio PA-C Primary Care Provider [phone] Chad Pino MD Unavailable [phone] Aggie Magaañ MD Unavailable [phone] Lizzette Paul PA-C Unavailable [phone] Rich Interiano PA-C Unavailable [phone] Encounter Details Date Type Department Care Team Description 03/01/2022 Controlled Substance Plan Medical Records [address] [place] [address] Abstract, Provider Social History Tobacco Use Types [...] suspected to have Coronavirus/COVID-19? No / Unsure 02/23/2022 4:37 PM EDT documented as of this encounter Plan of Treatment Not on file documented as of this encounter Visit Diagnoses Not on filedocumented in this encounter Care Teams Content Producer Relationship Specialty Start Date End Date Jose Alberto Palacio PA-C [address] [place] [address] PCP - General Internal Medicine 04/15/21 Chad Pino MD [address] [place] [address] Specialist Cardiology 07/27/22 Aggie Magaña MD [address] [address] Surgeon Neurosurgery 10/11/23 Lizzette Paul PA-C [address] [address] Specialist Neurosurgery 10/11/23 Rich Interiano PA-C [address] [address] Specialist Neurosurgery 10/11/23 documented as of this encounter
--- OUTSIDE RECORDS SUMMARY | 2024-12-12 16:22 | XMS_ITS | Encounter Summary ---
Author Organization [facility] Address [address] [place] [address] Care Team Providers Care Resistor Tester Name Role Phone Tina Suarez MD Primary Care Provider Unavail able Jose Alberto Palacio PA-C Primary Care Provider [phone] Chad Pino MD Unavailable [phone] Aggie Magaña MD Unavailable [phone] Lizzette Paul PA-C Unavailable [phone] Rich Interiano PA-C Unavailable [phone] Encounter Details Date Type Department Care Team Description 02/03/2018 Release of Information Medical Records [address] [place] [address] Abstract, Provider Social History Tobacco Use Types [...] on filedocumented in this encounter Care Teams Resistor Tester Relationship Specialty Start Date End Date Tina Suarez MD PCP - General Internal Medicine 01/31/18 04/14/21 Jose Alberto Palacio PA-C [address] [place] [address] PCP - General Internal Medicine 04/15/21 Chad Pino MD [address] [place] [address] Specialist Cardiology 07/27/22 Aggie Magaña MD [address] [address] Surgeon Neurosurgery 10/11/23 Lizzette Paul PA-C [address] [address] Specialist Neurosurgery 10/11/23 Rich Interiano PA-C [address] [address] Specialist Neurosurgery 10/11/23 documented as of this encounter
--- OUTSIDE RECORDS SUMMARY | 2024-12-12 16:22 | XMS_ITS | Encounter Summary ---
Author Organization [facility] Address [address] [place] [address] Care Team Providers Care Thermo Cementing Folder Operator Name Role Phone Tina Suarez MD Primary Care Provider Unavail able Jose Alberto Palacio PA-C Primary Care Provider [phone] Chad Pino MD Unavailable [phone] Aggie Magaña MD Unavailable [phone] Lizzette Paul PA-C Unavailable [phone] Rich Interiano PA-C Unavailable [phone] Encounter Details Date Type Department Care Team Description 06/30/2020 Drug And Alcohol Counsellor Report Medical Records [address] [place] [address] [facility] [address] [place] [address] Social History Tobacco Use Types Packs/Day Years [...] have Coronavirus / COVID-19? No / Unsure 06/10/2020 3:25 PM EDT documented as of this encounter Plan of Treatment Not on file documented as of this encounter Visit Diagnoses Not on filedocumented in this encounter Care Teams Thermo Cementing Folder Operator Relationship Specialty Start Date End Date Tina Suarez MD PCP - General Internal Medicine 01/31/18 04/14/21 Jose Alberto Palacio PA-C [address] [place] [address] PCP - General Internal Medicine 04/15/21 Chad Pino MD [address] [place] [address] Specialist Cardiology 07/27/22 Aggie Magaña MD [address] [address] Surgeon Neurosurgery 10/11/23 Lizzette Paul PA-C [address] [address] Specialist Neurosurgery 10/11/23 Rich Interiano PA-C [address] [address] Specialist Neurosurgery 10/11/23 documented as of this encounter
--- OUTSIDE RECORDS SUMMARY | 2024-12-12 16:22 | XMS_ITS | Encounter Summary ---
Author Organization [facility] Address [address] [place] [address] Care Team Providers Care Paint Stockman Name Role Phone Jose Alberto Palacio PA-C Primary Care Provider [phone] Chad Pino MD Unavailable [phone] Aggie Magaña MD Unavailable [phone] Lizzette Paul PA-C Unavailable [phone] Rich Interiano PA-C Unavailable [phone] Reason for Visit * Reason Comments E-prescribe Rx Request Encounter Details Date Type Department Care Team Description 04/18/2023 Refill Adult Medicine [address] [id number] Jose Alberto Palacio PA-C [address] [place] [address] [id number] E-prescribe Rx Request Social History Tobacco Use [...] suspected to have Coronavirus/COVID-19? No / Unsure 04/12/2023 2:17 PM EDT documented as of this encounter Miscellaneous Notes * Telephone Encounter - Yeimi Dhillon M.A. - 04/19/2023 3:25 PM EDT Telephone Information: Spoke to PT to advise a short supply has been sent to his pharmacy until UDS can be completed. PT states he is currently now in [place] and he confirms he has a credit card to purchase something and will bring receipt with him to his appointment with Vasiliy on 04/26/23. PT states he will be here for this appointment and won/t miss it & understands he will be doing the UDS this day as well. FYI to PCP and FYI notated. * Telephone Encounter - Jose Alberto Palacio PA-C - 04/19/2023 2:15 PM EDT I did order the UDS. Could have when he returns but like you said would recommend he bring some kind ofreceipt * Telephone Encounter - Yeimi Dhillon M.A. - 04/19/2023 2:11 PM EDT Please comment on UDS below, thank you. * Telephone Encounter - Yeimi Dhillon M.A. - 04/19/2023 9:20 AM EDT Telephone Information: Pt was notified to complete a random urine drug screen in our [facility] by 04/20/23. The patient was also instructed that failure to complete this urine drug screen, as requested, would jeopardize their Controlled Substance Contract with [facility]. The patient expressed understanding of the instructions and stated he is at [facility] until next Tuesday with his daughter. I requested proof upon his return such as hotel receipt, meals recipt, gas receipt PT states everything is in his daughters name and even if he purchared any thing he only uses boyce and does not havea credit/debit card. PT also advised he must make rescheduled CSC follow up as he No Show last 2 appointments stating hewas sick, I instructed PT that he needs to call and reschedule not No Show. PT verbalized understanding and verbalized he will be here next week for his f/u with Tere Choi at 8:30 AM. I advised PT I cannot guarantee his PCP would refill this until he is seen and a UDS is collected, a partial fill may be considered. Advised PT we will f/u with him on the PCP's decision, PT states he has a few pills left until he returns home 04/25/23. FYI notated with the above and script for 2 days pended for your review. *Masspat printed in bin for review, signing and send to scanning. * Telephone Encounter - Cheri Smith - 04/18/2023 10:53 AM EDT Last fill 03/14 No showed and 04/08/23 visit Overdue for uds Left message for patient to contact office to book and advise uds is needed alfreda Lab Results Component Value Date URBENZO NONE DETECTED 02/23/2022 UROPIATES NONE DETECTED 02/23/2022 UROXYCODONE NONE DETECTED 02/23/2022 URBARBITUATE NONE DETECTED 02/23/2022 PAINAMPHETAM NONE DETECTED 02/23/2022 PAINCOCAINE NONE DETECTED 02/23/2022 PAINCANNABIN NONE DETECTED 02/23/2022 documented in this encounter Plan of Treatment Not on file documented as of this encounter Visit Diagnoses Not on filedocumented in this encounter Care Teams Paint Stockman Relationship Specialty Start Date End Date Jose Alberto Palacio PA-C [address] [place] [address] PCP - General Internal Medicine 04/15/21 Chad Pino MD [address] [place] [address] Specialist Cardiology 07/27/22 Aggie Magaña MD [address] [address] Surgeon Neurosurgery 10/11/23 Lizzette Paul PA-C [address] [address] Specialist Neurosurgery 10/11/23 Rich Interiano PA-C [address] [address] Specialist Neurosurgery 10/11/23 documented as of this encounter
--- OUTSIDE RECORDS SUMMARY | 2024-12-12 16:22 | XMS_ITS | Encounter Summary ---
Author Organization [facility] Address [address] [place] [address] Care Team Providers Care Manual Arts Therapy Teacher Name Role Phone Tina Suarez MD Primary Care Provider Unavail able Jose Alberto Palacio PA-C Primary Care Provider [phone] Chad Pino MD Unavailable [phone] Aggie Magaña MD Unavailable [phone] Lizzette Paul PA-C Unavailable [phone] Rich Interiano PA-C Unavailable [phone] Encounter Details Date Type Department Care Team Description 11/12/2018 [facility] Medical Records [address] [place] [address] David Norman MD Social History Tobacco Use [...] on filedocumented in this encounter Care Teams Manual Arts Therapy Teacher Relationship Specialty Start Date End Date Tina Suarez MD PCP - General Internal Medicine 01/31/18 04/14/21 Jose Alberto Palacio PA-C [address] [place] [address] PCP - General Internal Medicine 04/15/21 Chad Pino MD [address] [place] [address] Specialist Cardiology 07/27/22 Aggie Magaña MD [address] [address] Surgeon Neurosurgery 10/11/23 Lizzette Paul PA-C [address] [address] Specialist Neurosurgery 10/11/23 Rich Interiano PA-C [address] [address] Specialist Neurosurgery 10/11/23 documented as of this encounter
--- OUTSIDE RECORDS SUMMARY | 2024-12-12 16:23 | XMS_ITS | Encounter Summary ---
Author Organization [facility] Address [address] [place] [address] Care Team Providers Care Pan Reclaim Processor Name Role Phone Tina Suarez MD Primary Care Provider Unavail able Jose Alberto Palacio PA-C Primary Care Provider [phone] Chad Pino MD Unavailable [phone] Aggie Magaña MD Unavailable [phone] Lizzette Paul PA-C Unavailable [phone] Rich Interiano PA-C Unavailable [phone] Encounter Details Date Type Department Care Team Description 11/30/2018 Telephone Adult Medicine [address] [address] Chelsey Fischer NP Social History Tobacco Use Types Packs/Day [...] encounter Miscellaneous Notes * Telephone Encounter - Kiarra Anderson R.N. - 11/30/2018 8:59 AM EDT Telephone Information: Work Phone Not on file. Pt has been having burning in mouth radiating to esphagus for 2 1/2 weeks every time he eats or drinks something. This caused pt some difficulty with swallowing but no swelling in throat. Burning is not present Otherwise. No cp or sob. Pt has COPD. Speaks in full sentences and no audible wheezing. No RENTERIA, dizziness or light headedness. No numbness, tingling or swelling to face and extremities. No abd pain, n/v. Afebrile. No ams. No visual changes. Pt was prescribe a nictonine inhaler on 11/15 which he has stopped almost immediately because he mouth start burning. Pt is currentlly smoking. Pt saw Pulmonalist on 11/28 and did not report the burning in his mouth. Appt for today is appropriate * Telephone Encounter - Chelsey Fischer NP - 11/30/2018 7:17 AM EDT Please triage today's visit Patient is having burning in mouth and tongue Please make sure he's not having resp or cardiac or neuro symptoms. Ludy DE LA [place]A documented in this encounter Plan of Treatment Not on file documented as of this encounter Visit Diagnoses Not on filedocumented in this encounter Care Teams Pan Reclaim Processor Relationship Specialty Start Date End Date Tina Suarez MD PCP - General Internal Medicine 01/31/18 04/14/21 Jose Alberto Palacio PA-C [address] [place] [address] PCP - General Internal Medicine 04/15/21 Chad Pino MD [address] [place] [address] Specialist Cardiology 07/27/22 Aggie Magaña MD [address] [place] [address] Surgeon Neurosurgery 10/11/23 Lizzette Paul PA-C 175 [facility] [address] [place] [address] [id number] Specialist Neurosurgery 10/11/23 Rich Interiano PA-C 175 [facility] [address] [place] [address] Specialist Neurosurgery 10/11/23 documented as of this encounter
--- OUTSIDE RECORDS SUMMARY | 2024-12-12 16:23 | XMS_ITS | Encounter Summary ---
Author Organization [facility] Address [address] [place] [address] Care Team Providers Care Walking Dragline Operator Name Role Phone Tina Suarez MD Primary Care Provider Unavail able Jose Alberto Palacio PA-C Primary Care Provider [phone] Chad Pino MD Unavailable [phone] Aggie Magaña MD Unavailable [phone] Lizzette Paul PA-C Unavailable [phone] Rich Interiano PA-C Unavailable [phone] Encounter Details Date Type Department Care Team Description 12/20/2018 [facility] Medical Records [address] [place] [address] Abstract, Provider Social History Tobacco Use Types [...] on filedocumented in this encounter Care Teams Walking Dragline Operator Relationship Specialty Start Date End Date Tina Suarez MD PCP - General Internal Medicine 01/31/18 04/14/21 Jose Alberto Palacio PA-C [address] [place] [address] PCP - General Internal Medicine 04/15/21 Chad Pino MD [address] [place] [address] Specialist Cardiology 07/27/22 Aggie Magaña MD [address] [address] Surgeon Neurosurgery 10/11/23 Lizzette Paul PA-C [address] [address] Specialist Neurosurgery 10/11/23 Rich Interiano PA-C [address] [address] Specialist Neurosurgery 10/11/23 documented as of this encounter
--- OUTSIDE RECORDS SUMMARY | 2024-12-12 16:23 | XMS_ITS | Encounter Summary ---
Author Organization [facility] Address [address] [place] [address] Care Team Providers Care Repossession Agent Name Role Phone Jose Alberto Palacio PA-C Primary Care Provider Chad Pino MD Unavailable [phone] Aggie Magaña MD Unavailable [phone] Lizzette Paul PA-C Unavailable [phone] Rich Interiano PA-C Unavailable Reason for Visit * Reason Onset Date Comments Error 04/03/2024 Encounter Details Date Type Department Care Team Description 04/03/2024 Telephone Adult Medicine [address] [id number] Esequiel Hughes MD [address] [place] [address] [id number] Error Social History Tobacco Use Types Packs/Day [...] encounter Miscellaneous Notes * Telephone Encounter - Samantha Hunter - 04/03/2024 2:41 PM EDT Error documented in this encounter Plan of Treatment Not on file documented as of this encounter Visit Diagnoses Not on filedocumented in this encounter Care Teams Repossession Agent Relationship Specialty Start Date End Date Jose Alberto Palacio PA-C [address] [place] [address] PCP - General Internal Medicine 04/15/21 Chad Pino MD [address] [place] [address] Specialist Cardiology 07/27/22 Aggie Magaña MD [address] [address] Surgeon Neurosurgery 10/11/23 Lizzette Paul PA-C [address] [address] Specialist Neurosurgery 10/11/23 Rich Interiano PA-C [address] [address] Specialist Neurosurgery 10/11/23 documented as of this encounter
--- OUTSIDE RECORDS SUMMARY | 2024-12-12 16:23 | XMS_ITS | Encounter Summary ---
Author Organization [facility] Address [address] [place] [address] Care Team Providers Care Rug Scratcher Name Role Phone Jose Alberto Palacio PA-C Primary Care Provider [phone] Chad Pino MD Unavailable [phone] Aggie Magaña MD Unavailable [phone] Lizzette Paul PA-C Unavailable [phone] Rich Interiano PA-C Unavailable [phone] Encounter Details Date Type Department Care Team Description 11/22/2022 Release of Information Medical Records [address] [place] [address] Abstract, Provider Social History Tobacco Use Types [...] suspected to have Coronavirus/COVID-19? No / Unsure 11/11/2022 1:57 PM EST documented as of this encounter Plan of Treatment Not on file documented as of this encounter Visit Diagnoses Not on filedocumented in this encounter Care Teams Rug Scratcher Relationship Specialty Start Date End Date Jose Alberto Palacio PA-C [address] [place] [address] PCP - General Internal Medicine 04/15/21 Chad Pino MD [address] [place] [address] Specialist Cardiology 07/27/22 Aggie Magaña MD [address] [address] Surgeon Neurosurgery 10/11/23 Lizzette Paul PA-C [address] [address] Specialist Neurosurgery 10/11/23 Rich Interiano PA-C [address] [address] Specialist Neurosurgery 10/11/23 documented as of this encounter
--- OUTSIDE RECORDS SUMMARY | 2024-12-12 16:23 | XMS_ITS | Encounter Summary ---
Author Organization [facility] Address [address] [place] [address] Care Team Providers Care Internet Project Manager Name Role Phone Tina Suarez MD Primary Care Provider Unavail able Jose Alberto Palacio PA-C Primary Care Provider Chad Pino MD Unavailable [phone] Aggie Magaña MD Unavailable [phone] Lizzette Paul PA-C Unavailable [phone] Rich Interiano PA-C Unavailable [phone] Encounter Details Date Type Department Care Team Description 11/29/2018 [facility] [address] [address] Tina Suarez MD Social History Tobacco Use Types Packs/Day [...] on filedocumented in this encounter Care Teams Internet Project Manager Relationship Specialty Start Date End Date Tina Suarez MD PCP - General Internal Medicine 01/31/18 04/14/21 Jose Alberto Palacio PA-C [address] [place] [address] PCP - General Internal Medicine 04/15/21 Chad Pino MD [address] [place] [address] Specialist Cardiology 07/27/22 Aggie Magaña MD [address] [address] Surgeon Neurosurgery 10/11/23 Lizzette Paul PA-C [address] [address] Specialist Neurosurgery 10/11/23 Rich Interiano PA-C [address] [address] Specialist Neurosurgery 10/11/23 documented as of this encounter
--- OUTSIDE RECORDS SUMMARY | 2024-12-12 16:23 | XMS_ITS | Encounter Summary ---
Author Organization [facility] Address [address] [place] [address] Care Team Providers Care Back Up Scan Coordinator Name Role Phone Jose Alberto Palacio PA-C Primary Care Provider [phone] Chad Pino MD Unavailable [phone] Aggie Magaña MD Unavailable [phone] Lizzette Paul PA-C Unavailable [phone] Rich Interiano PA-C Unavailable [phone] Encounter Details Date Type Department Care Team Description 01/24/2024 Surgical Garment Inspector Report Medical Records [address] [place] [address] Allan Luna PA-C Social History Tobacco Use [...] on filedocumented in this encounter Care Teams Back Up Scan Coordinator Relationship Specialty Start Date End Date Jose Alberto Palacio PA-C [address] [place] [address] [id number] PCP - General Internal Medicine 04/15/21 Chad Pino MD [address] [place] [address] Specialist Cardiology 07/27/22 Aggie Magaña MD [address] [address] Surgeon Neurosurgery 10/11/23 Lizzette Paul PA-C [address] [address] Specialist Neurosurgery 10/11/23 iRch Interiano PA-C [address] [address] Specialist Neurosurgery 10/11/23 documented as of this encounter
== END 2024-12-12 14:14 | disposition home or self-care (01) ==
LOC: HO.RHES 13:42
PROVIDERS: PCP Internal Medicine; Visit Provider Internal Medicine Rheumatology
DX: R25.2 Cramp and spasm (principal); M05.79 Rheumatoid arthritis with rheumatoid factor of multiple sites without organ or systems involvement
CPT/HCPCS: 99214; G2211

== ENCOUNTER 2024-12-12 13:42 | Outpatient (REF) | payer MEDICARE, SELFPAY ==
[2024-12-12 18:15] LABS: MANUAL DIFF FLAG NO
[2024-12-12 18:17] LABS: Basophils Absolute Auto 0.1 X10*3/uL (0.0-0.2); Basophils Percent Auto 1.3 % (0-2); Eosinophils Absolute Auto 0.2 X10*3/uL (0.0-0.4); Eosinophils Percent Auto 2.3 % (0-4); Hematocrit 43.5 % (42.0-52.0); Hemoglobin 14.2 g/dl (14.0-18.0); Imm Gran Abs Auto 0.05 X10*3/uL (0.00-0.03); Imm Gran Pct Auto 0.5 % (0.0-0.4); Lymphocytes Absolute Auto 2.5 X10*3/uL (1.2-4.9); Lymphocytes Percent Auto 23.1 % (20-40); Mean Corpuscular HGB Conc 32.6 g/dl (31.0-36.0); Mean Corpuscular Hemoglobin 33.7 pg (27.0-33.0); Mean Corpuscular Volume 103.3 fL (80.0-98.0); Mean Platelet Volume 10.6 fL (9.4-12.4); Monocytes Absolute Auto 0.8 X10*3/uL (0.1-1.2); Monocytes Percent Auto 7.3 % (2-11); Neutrophils Percent Auto 65.5 % (45-73); Platelet Count 244 X10*3/uL (160-400); Red Blood Count 4.21 X10*6/uL (4.60-5.80); Red Cell Distribution Width 13.9 % (11.0-16.0); White Blood Count 10.6 X10*3/uL (4.8-10.8)
[2024-12-12 18:29] LABS: Alanine Aminotransferase 11 U/L (0-40); Albumin Level 4.1 g/dL (3.5-5.0); Aspartate Amino Transferase 23 U/L (5-37); C Reactive Protein 0.21 mg/dL (< or = 0.50); Calcium 9.3 mg/dL (8.4-10.2); Estimated Glomerular Filt Rate > 60; Magnesium 1.9 mg/dL (1.6-2.6); Potassium 3.9 mmol/L (3.3-5.1)
[2024-12-12 19:01] LABS: Erythrocyte Sedimentation Rate 9 MM/HR (0-15)
== END 2024-12-12 13:43 | disposition home or self-care (01) ==
LOC: HO.HKASLDS 13:42
PROVIDERS: Visit Provider Internal Medicine Rheumatology
DX: R25.2 Cramp and spasm (principal); M05.79 Rheumatoid arthritis with rheumatoid factor of multiple sites without organ or systems involvement; Z79.60 Long term (current) use of unspecified immunomodulators and immunosuppressants; Z79.899 Other long term (current) drug therapy
CPT/HCPCS: 36415; 82040; 82310; 82565; 83735; 84132; 84450; 84460; 85025; 85652; 86140; 99212

== ENCOUNTER 2025-03-27 08:33 | Outpatient (REF) | payer MEDICARE, SELFPAY ==
[2025-03-27 18:08] LABS: Alanine Aminotransferase 16 U/L (0-40); Aspartate Amino Transferase 26 U/L (5-37); Baso%MD 1.0 %; Eos%MD 1.6 %; Estimated Glomerular Filt Rate > 60; Hematocrit 44.1 % (42.0-52.0); Hemoglobin 14.7 g/dl (14.0-18.0); IG%MD 0.4 %; Lymph%MD 21.5 %; Mean Corpuscular HGB Conc 33.3 g/dl (31.0-36.0); Mean Corpuscular Hemoglobin 33.7 pg (27.0-33.0); Mean Corpuscular Volume 101.1 fL (80.0-98.0); Mono%MD 9.0 %; NRBC Abs Auto 0.000 X10*3/uL (0.0-0.012); NRBC Pct Auto 0.0 /100WBC (0.0-0.2); Neut%MD 66.5 %; Platelet Count 245 X10*3/uL (160-400); Red Blood Count 4.36 X10*6/uL (4.60-5.80); White Blood Count 9.2 X10*3/uL (4.8-10.8)
[2025-03-27 20:24] LABS: Atypical Lymph Absolute Manual 0.1 x10*3/uL; Atypical Lymphs Percent Manual 1 % (0-6); Eosinophils Absolute Manual 0.2 X10*3/uL (0.0-0.4); Eosinophils Percent Manual 2 % (0-4); Lymphocytes Absolute Manual 2.1 X10*3/uL (1.2-4.9); Lymphocytes Percent Manual 23 % (20-40); Monocytes Absolute Manual 0.6 X10*3/uL (0.1-1.2); Monocytes Percent Manual 6 % (2-11); Neutrophils Percent Manual 68 % (45-73)
[2025-03-27 20:25] LABS: Band Neutrophils Percent 0 % (3-5); Neutrophils Absolute Manual 6.3 X10*3/uL (2.0-8.3); RBC Morphology NORMAL
== END 2025-03-27 08:34 | disposition home or self-care (01) ==
LOC: HO.HKASLDS 08:33
PROVIDERS: PCP Physician Assistant Medical; Visit Provider Internal Medicine Rheumatology
DX: M05.79 Rheumatoid arthritis with rheumatoid factor of multiple sites without organ or systems involvement (principal); R25.2 Cramp and spasm; Z79.899 Other long term (current) drug therapy
CPT/HCPCS: 36415; 82565; 84450; 84460; 85007; 85027; 85652; 86140; 99212

== ENCOUNTER 2025-03-27 08:33 | Outpatient (AMB) | payer MEDICARE, SELFPAY ==
--- NOTE | 2025-03-27 08:33 | MHC.OFFVIS ---
Vital Signs 03/27/25 08:34 Height 5 ft 8 in Weight 158 lb 11.725 oz BMI 24.1 BP 100/72 Blood Pressure Location Rt brachial Position Sitting Pulse 97 Pulse Source Pulse Oximeter Pulse Oximetry (%) 98 Oxygen Delivery Method Room Air Intake Visit Reasons: 3 Months Intake Note: Patient presents for follow up on RA. Allergies naproxen (From Aleve) Adverse Reaction (Verified 03/27/25 08:36) rash HPI HPI 3 Months: Details: No recent infections. He feels well. No joint swelling. One episode of hand cramping. [facility] Social History (Reviewed 03/27/25 @ 08:34 by Mary Castro [facility]) Patient Tobacco Use Status: Current everyday Tobacco user Physical Exam Vital Signs: Last Vital Signs Pulse 97 03/27/25 08:34 BP 100/72 03/27/25 08:34 Pulse Ox 98 03/27/25 08:34 Oxygen Delivery Method Room Air 03/27/25 08:34 BMI result Body Mass Index 24.1 Const Other: General: Comfortable CVS: RRR Respiratory: clear to auscultation bilaterally. Good respiratory effort Skin: No lesions seen MSK: No tenderness of any joints. No synovitis. Normal range of motion of upper and lower extremities. Assessment & Plan Assessment & Plan (1) Rheumatoid arthritis: Comment: Controlled with monotherapy with methotrexate Code(s): M06.9 - Rheumatoid arthritis, unspecified Category: Medical Qualifiers: Rheumatoid arthritis location: multiple sites Rheumatoid factor presence: with rheumatoid factor Qualified Code(s): M05.79 - Rheumatoid arthritis with rheumatoid factor of multiple sites without organ or systems involvement Plan: Continue methotrexate 20 mg once weekly Continue folic acid 1 mg daily Labs for disease and drug monitoring on high risk medication due today Return to clinic in 3 months (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 He only had one episode since last visit. Bilateral hands. 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 therapy Aspartate Amino Transferase Today M05.79 - Rheumatoid arthritis with rheumatoid factor of multiple sites without organ or systems involvement, Z79.899 - Other prison (current) drug therapy Complete Blood Count Man Dif Today M05.79 - Rheumatoid arthritis with rheumatoid factor of multiple sites without organ or systems involvement, Z79.899 - Other middle or intermediate school principal (current) drug therapy Creatinine Today M05.79 - Rheumatoid arthritis with rheumatoid factor of multiple sites without organ or systems involvement, Z79.899 - Other prison (current) drug therapy C Reactive Protein Today M05.79 - Rheumatoid arthritis with rheumatoid factor of multiple sites without organ or systems involvement, Z79.899 - Other prison (current) drug therapy Erythrocyte Sedimentation Rate Today M05.79 - Rheumatoid arthritis with rheumatoid factor of multiple sites without organ or systems involvement, Z79.899 - Other middle or intermediate school principal (current) drug therapy Medications: Changed From methotrexate sodium 20 mg (8 x 2.5 mg) PO QWEEK 109 tabs 0RF To methotrexate sodium 20 mg (8 x 2.5 mg) PO QWEEK 96 tabs 0RF 12 weeks Coding Level of Care Code Est Pt Level 4 (91362) Complex EM visit Add On G2211 Diagnoses Rheumatoid arthritis involving multiple sites with positive rheumatoid factor M05.79 Rheumatoid arthritis location: multiple sites Rheumatoid factor presence: with rheumatoid factor Other middle or intermediate school principal (current) drug therapy Z79.89 Hand cramp R25.2
[2025-03-27 08:34] VITALS: BP 100/72; PULSE 97; O2SAT 98; BMI 24.1
--- OUTSIDE RECORDS SUMMARY | 2025-03-27 08:47 | XMS_ITS | Clinical Summary ---
Author Organization [facility] Address [address] [place] [address] Phone Care Team Providers Care Starchmaker Name Role Phone Jose Alberto Palacio Primary Care Provider [phone] Allergies Active Allergy Reactions Criticality Noted Date Comments Naproxen 02/01/2018 Other Reaction(s): Hives/Urticaria Medications methotrexate 2.5 mg tablet Take 8 Tablets by mouth once a week/sundays10/21/19 22 Active gabapentin (NEURONTIN) 600 mg tablet TAKE 1 TABLET BY MOUTH THREE TIMES DAILY 04/04/20 24 Active celecoxib (CeleBREX) 200 mg capsule TAKE 1 CAPSULE BY MOUTH TWICE DAILY WITH FOOD 07/08/20 22 Active folic acid (FOLVITE) 1 mg tablet Take 1 tablet (1,000 mcg total) by mouth 1 (one) time each day. 01/26/20 23 Active Oxygen Therapy (O2) gas Inhale 2 L into the lungs at bedtime. [employer] Active atorvastatin (LIPITOR) 20 mg tablet Take 1 tablet (20 mg total) by mouth 1 (one) time each day. At 5pm. 90 tablet 1 10/08/19 25 Active traZODone (DESYREL) 150 mg tablet Take 1 tablet (150 mg total) by mouth at bedtime. 90 tablet 1 10/08/19 25 Active escitalopram (LEXAPRO) 20 mg tablet Take 1 tablet (20 mg total) by mouth 1 (one) time each day. 90 tablet 3 10/22/19 25 Active busPIRone (BUSPAR) 5 mg tablet Take 1 tablet (5 mg total) by mouth 3 (three) times a day. TAKE 1 TABLET BY MOUTH THREE TIMES DAILY 270 tablet 12/19/19 25 Active fluticasone-umecli dinium-vilanterol (Trelegy Ellipta) 100-62.5-25 mcg inhalerIndications :Stage 2 moderate COPD by GOLD classification (CMS/[facility] V24, CMS/[facility] V28) Inhale 1 puff (100 mcg total) by mouth 1 (one) time each day. Rinse mouth with water after use to reduce aftertaste and incidence of candidiasis. Do not swallow. 60 each 02/07/20 25 026 Active albuterol HFA (PROAIR HFA ; PROVENTIL HFA ; VENTOLIN HFA) 90 mcg/actuation inhalerIndications :Stage 2 moderate COPD by GOLD classification (CMS/HCC V24, CMS/[facility] V28) Inhale 2 puffs by mouth every 4 (four) hours if needed for wheezing. Inhale 2 Puffs into the lungs 4 times daily as needed for Cough, Wheezing or Shortness of Breath. 18 g 3 02/07/20 25 025 Active ipratropium-albute roL (DUONEB) 0.5-2.5 mg/3 mL nebulizer solutionIndication s:Centrilobular emphysema (CMS/HCC V24, CMS/[facility] V28),Chronic obstructive pulmonary disease, unspecified (CMS/[facility] V24, CMS/[facility] V28) Take 3 mL by nebulization 4 (four) times a day if needed for wheezing. 360 mL 02/07/20 25 Active traMADoL (ULTRAM) 50 mg tablet Take 1 tablet (50 mg total) by mouth every 6 (six) hours if needed for severe pain. Max Daily Amount: 200 mg 112 tablet 02/16/20 25 Active aspirin 325 mg tablet Take 1 tablet (325 mg total) by mouth 1 (one) time each day. Active HYDROcodone-acetam inophen (NORCO) 5-325 mg per tablet Take 1 tablet by mouth every 6 (six) hours if needed for severe pain. Max Daily Amount: 4 tablets 112 tablet 03/13/20 25 Active omeprazole (PriLOSEC) [address] capsule Take 1 capsule (20 mg total) by mouth 1 (one) time each day. 90 capsule 3 03/13/20 25 Active ketoconazole 1 % shampoo Shampoo daily, leave on for 5-10 minutes, then rinse. 120 mL 3 03/13/20 25 026 Active omeprazole (PriLOSEC) [address] capsule Take 1 capsule (20 mg total) by mouth 1 (one) time each day. 04/26/20 025 Discontin ued(Reord er) aspirin 81 mg chewable tablet Chew 1 tablet (81 mg total). 08/11/20 025 Discontin ued(Patie nt Discharge ) aspirin-acetaminop hen-caffeine (EXCEDRIN MIGRAINE) 250-250-65 mg per tablet Take 2 tablets by mouth every 6 (six) hours if needed for headaches. 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 Some treatment with methotrexate and Xeljanz ~ 2015 but ran out of insurance RF, CCP Ab positive Encounters Date Type Department Care Team Description 03/13/2025 11:00 AM EDT Office Visit Adult Medicine [address] [phone] Jose Alberto Palacio PA Spondylolisthesis of lumbosacral region (Primary Dx); Tobacco use; Mixed hyperlipidemia; Stage 2 moderate COPD by GOLD classification ([facility] V24, [facility] V28); Seropositive rheumatoid arthritis of multiple sites ([facility] V[facility], [facility] V28); Anxiety; Encounter for therapeutic drug level monitoring; Gastroesophageal reflux disease without esophagitis; Fibromyalgia 02/07/[address] [phone] Mami Valentine NP Medication Problem 02/06/2025 3:10 PM EDT [facility] [address] [phone] Mami Valentine NP Stage 2 moderate COPD by GOLD classification ([facility] V[facility], [facility] V28) (Primary Dx); Centrilobular emphysema ([facility] V[facility], [facility] V28); Chronic obstructive pulmonary disease, unspecified ([facility], [facility] V28) 01/01/2025 Telephone Adult Medicine [address] [phone] Olive Ortez [place] RX REQUEST from Last 3 Months Immunizations Name Administration Dates Next Due Pfizer SARS-CoV-2 COVID-19, mRNA, LNP-S, preservative free 08/31/2021,02/11/2021,01/21/2021 Surgical History Surgery Date Site/Laterality Comments NECK SURGERY PROCEDURE: HISTORICAL NECK SURGERY; COMMENT: per patient 2 disc levels fused, in [place] CARPAL TUNNEL RELEASE Right PROCEDURE: [place] NEUROPLASTY &/TRANSPOS MEDIAN NRV CARPAL TUNNE; COMMENT: In [place] OTHER SURGICAL HISTORY Left PROCEDURE: HISTORICAL EAR SURGERY; COMMENT: congenital ear deformity OTHER SURGICAL HISTORY 08/2023 PROCEDURE: HISTORY OTHER; COMMENT: Cardiac stent placed, patient was having chest pain Medical History Medical History Date Comments Gout 02/01/2018 DX:Gout Anxiety 02/01/2018 DX:Anxiety Tobacco use 02/01/2018 DX:Tobacco use Pulmonary emphysema ([facility] V24, [facility] V28) 02/01/2018 DX:Pulmonary emphysema ([facility]) Seropositive rheumatoid arth ritis of multiple sites ([facility] V[facility], [facility] V28) 02/01/2018 DX:Seropositive rheumatoid a rthritis of multiple sites ([facility]) 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 02/16/2018 [...] 2 moderate COPD by GOL D classification ([facility] V24, [facility] V28) 05/26/2018 DX:Stage 2 moderate COPD by GOLD classification ([facility]); COMMENT: S/p LDCT 06/2018 no suspicious findings Family History Medical History Relation Name Comments Arthritis Mother Relation Name Status Comments Mother Social History Tobacco Use Types Packs/Day Years Used Date Smoking Tobacco: Every Day Cigarettes 1 50.5 Started: 09/19/1974 Smokeless Tobacco: Never Tobacco Cessation:Ready [...] Sign Reading Time Taken Comments Blood Pressure 124/76 03/13/2025 11:09 AM EDT Pulse 99 03/13/2025 11:09 AM EDT Temperature 36.9 C (98.4 F) 03/13/2025 11:09 AM EDT Respiratory Rate 15 03/13/2025 11:09 AM EDT Oxygen Saturation 94% 03/13/2025 11:09 AM EDT Inhaled Oxygen Concentration - - Weight 71.5 kg (157 lb 9.6 oz) 03/13/2025 11:09 AM EDT Height 172.7 cm (5' 8 ) 03/13/2025 11:09 AM EDT Body Mass Index 23.96 03/13/2025 11:09 AM EDT Plan of Treatment Upcoming Encounters Date Type Department Care Team (Late st Contact Info) Description 04/09/2025 2:45 PM EDT Office Visit Pulmonolgy - [place] [address] [place] [address] Mami Valentine NP [address] [place] [address] 06/18/2025 3:00 PM EDT Office Visit Adult Medicine [facility] [address] [place] [phone] Jose Alberto Palacio PA [address] [place] [address] Health Maintenance Due Date Last Done Comments HIV Screening 08/28/2022 Medicare Annual Wellness Visit 08/28/2022 Social Influencers of Health Screening 08/28/2022 COVID-19 Vaccine ( season) 2024 08/31/2021, 02/11/2021, 01/21/2021 Influenza Vaccine (#1) 2025 Depression Screening 06/11/2025 06/11/2024 Lung Cancer Screening (Low Dose CT) 07/17/2025 07/17/2024, 07/08/2023, 07/05/2022, Additional history exists Cholesterol Screening (Lipid Panel) 03/13/2030 03/13/2025, 09/17/2024, 08/29/2023 Colorectal Cancer Screening: Colonoscopy 08/28/2034 [...] age to complete this topic Meningococcal B Vaccine Aged Out No l onger eligible based on patient's age to complete this topic Pneumococcal Vaccine: 50+ Years Discontinued Pneumococcal Vaccine: Pediatrics (0 to 5 Years) and At-Risk Patients (6 to 49 Years) Discontinued RSV Immunization Adult Patients Discontinued RSV Immunization Patients Under 20 months Aged Out No longer eligible based on patient's age to complete this topic Varicella Vaccines Aged Out No longer eligible based on patient's age to complete this topic Zoster Vaccines Discontinued Medical Devices Implanted Type Area Labor Service Representative Device Identifier Shelf Expiration Date Model / Serial / Lot Spinal Hardware Spinal Hardware N/A: Neck Procedures Procedure Name Priority Date/Time Associated Diagnosis Comments CBC WITH AUTO DIFFERENTIAL Routine 03/13/2025 12:19 PM EDT Tobacco use Mixed hyperlipidemia Stage 2 moderate COPD by GOLD classification (CMS/HCC V24, CMS/HCC V28) Seropositive rheumatoid arthritis of multiple sites (CMS/HCC V24, CMS/HCC V28) Anxiety DRUG ABUSE SCREEN EXPANDED WITH REFLEX CONFIRMATION, URINE Routine 03/13/2025 12:19 PM EDT Tobacco use Mixed hyperlipidemia Stage 2 moderate COPD by GOLD classification (CMS/HCC V24, CMS/HCC V28) Seropositive rheumatoid arthritis of multiple sites (CMS/HCC V24, CMS/HCC V28) Anxiety Encounter for therapeutic drug level monitoring LIPID PANEL WITH REFLEX TO DIRECT LDL Routine 03/13/2025 12:19 PM EDT Tobacco use Mixed hyperlipidemia Stage 2 moderate COPD by GOLD classification (CMS/HCC V24, CMS/HCC V28) Seropositive rheumatoid arthritis of multiple sites (CMS/HCC V24, CMS/HCC V28) Anxiety COMPREHENSIVE METABOLIC PANEL Routine 03/13/2025 12:19 PM EDT Tobacco use Mixed hyperlipidemia Stage 2 moderate COPD by GOLD classification (CMS/HCC V24, CMS/HCC V28) Seropositive rheumatoid arthritis of multiple sites (CMS/HCC V24, CMS/HCC V28) Anxiety CBC AND DIFFERENTIAL Routine 03/13/2025 12:19 PM EDT Tobacco use Mixed hyperlipidemia Stage 2 moderate COPD by GOLD classification (CMS/HCC V24, CMS/HCC V28) Seropositive rheumatoid arthritis of multiple sites (CMS/HCC V24, CMS/HCC V28) Anxiety CT LUNG SCREENING LOW DOSE Routine 07/17/2024 8:53 AM EDT Encounter for screening for malignant neoplasm of respiratory organs DEPRESSION SCREENING Routine 06/11/2024 HEPATITIS C SCREENING Routine 02/01/2018 from Last 3 Months or Most Recently Relevant to Health Maintenance Results * Drug abuse screen expanded with reflex confirmation, urine (03/13/2025 12:19 PM EDT) Amphetamine Screen, Ur Negative Negative LAB CHEMISTRY METHOD 03/13/2025 6:50 PM EDT [facility] Comment:Certain OTC medicati ons containing ephedrine, phenylephrine, pseudoephedrine and phenylpropanolamine can cause false positive results. Barbiturate Screen, Ur Negative Negative LAB CHEMISTRY METHOD 03/13/2025 6:50 PM EDT [facility] Benzodiazepine Screen, Ur Negative Negative LAB CHEMISTRY METHOD 03/13/2025 6:50 PM EDT [facility] Cocaine Screen, Ur Negative Negative LAB CHEMISTRY METHOD 03/13/2025 6:50 PM EDT [facility] Opiate Screen, Ur Negative Negative LAB CHEMISTRY METHOD 03/13/2025 6:50 PM EDT [facility] Cannabinoid (THC) Screen, Ur Negative Negative LAB CHEMISTRY METHOD 03/13/2025 6:50 PM EDT [facility] Comment:Specimens from patie nts taking pantoprazole sodium (Protonix) have been shown to produce false positive results. Fentanyl, Ur Negative Negative LAB CHEMISTRY METHOD 03/13/2025 6:50 PM EDT [facility] Oxycodone Screen, Ur Negative Negative LAB CHEMISTRY METHOD 03/13/2025 6:50 PM EDT [facility] Urine Urine specimen obtained by clean catch procedure / Unknown Non-blood Collection / Unknown 03/13/2025 12:19 PM EDT 03/13/2025 12:19 PM EDT Narrative [facility] - 03/13/2025 6:50 PM EDT Assay cutoffs: Amphetamines 1000 ng/mL Barbiturates 200 ng/mL Benzodiazepines 200 ng/mL Cocaine 300 ng/mL Fentanyl 1 ng/mL Opiates 300 ng/mL Oxycodone 100 ng/mL THC 50 ng/mL Semi-quantitative assay for screening purposes only. Unconfirmed screening result should not be used for non-medical purposes. *POSITIVE RESULTS ARE AUTOMATICALLY SENT FOR ALTERNATE METHOD CONFIRMATION* Jose Alberto PHILLIPS LAB URINE ORDERABLES Jimena l Result [facility] [address] [place] [address], [place] [phone] * Lipid panel with reflex to direct LDL (03/13/2025 12:19 PM EDT) Cholesterol 158 0 - 200 mg/dL LAB CHEMISTRY METHOD 03/13/2025 4:23 PM EDT [facility] Triglycerides 134 0 - 150 mg/dL LAB CHEMISTRY METHOD 03/13/2025 4:23 PM EDT [facility] HDL 53 >=40 mg/dL LAB CHEMISTRY METHOD 03/13/2025 4:23 PM EDT [facility] LDL Calculated 78 0 - 100 mg/dL LAB CHEMISTRY METHOD 03/13/2025 4:23 PM EDT [facility] VLDL Cholesterol Rodrigo 26.8 mg/dL LAB CHEMISTRY METHOD 03/13/2025 4:23 PM EDT [facility] Non HDL Chol. (LDL+VLDL) 105 <145 mg/dL LAB CHEMISTRY METHOD 03/13/2025 4:23 PM EDT [facility] Chol/HDL Ratio 3.0 0.0 - 4.4 LAB CHEMISTRY METHOD 03/13/2025 4:23 PM EDT [facility] Blood Venous blood specimen / Unknown Venipuncture / Unknown 03/13/2025 12:19 PM EDT 03/13/2025 12:19 PM EDT us Jose Alberto PHILLIPS LAB BLOOD ORDERABLES Jimena victor Result [facility] [address] [place] [address], * (ABNORMAL) CBC auto differential (03/13/2025 12:19 PM EDT) WBC 8.4 4.8 - 10.8 K/mcL LAB HEMETOLOGY METHOD 03/13/2025 3:35 PM EDT [facility] RBC 4.30(L) 4.50 - 5.50 M/mcL LAB HEMETOLOGY METHOD 03/13/2025 3:35 PM EDT [facility] Hemoglobin 14.1 13.5 - 17.5 g/dL LAB HEMETOLOGY METHOD 03/13/2025 3:35 PM EDT [facility] Hematocrit 44.5 42.0 - 54.0 % LAB HEMETOLOGY METHOD 03/13/2025 3:35 PM EDT [facility] MCV 104.2(H) 79.0 - 98.0 FL LAB HEMETOLOGY METHOD 03/13/2025 3:35 PM EDT [facility] MCH 33.0(H) 27.0 - 32.0 pcg LAB HEMETOLOGY METHOD 03/13/2025 3:35 PM EDT [facility] MCHC 31.7(L) 32.0 - 37.0 g/dL LAB HEMETOLOGY METHOD 03/13/2025 3:35 PM EDT [facility] RDW 12.8 11.0 - 15.0 % LAB HEMETOLOGY METHOD 03/13/2025 3:35 PM EDT [facility] Platelets 230 130 - 400 K/mcL LAB HEMETOLOGY METHOD 03/13/2025 3:35 PM EDT [facility] MPV 11.1(H) 7.0 - 11.0 FL LAB HEMETOLOGY METHOD 03/13/2025 3:35 PM EDT [facility] NRBC 0.0 <1.0 % LAB HEMETOLOGY METHOD 03/13/2025 3:35 PM EDT [facility] NRBC Absolute 0.00 <0.10 K/mcL LAB HEMETOLOGY METHOD 03/13/2025 3:35 PM EDT [facility] Neutrophils Relative 66.6 % LAB HEMETOLOGY METHOD 03/13/2025 3:35 PM EDT [facility] Lymphocytes Relative 21.7 % LAB HEMETOLOGY METHOD 03/13/2025 3:35 PM EDT [facility] Monocytes Relative 8.8 % LAB HEMETOLOGY METHOD 03/13/2025 3:35 PM EDT [facility] Eosinophils Relative 1.4 % LAB HEMETOLOGY METHOD 03/13/2025 3:35 PM EDT [facility] Basophils Relative 1.0 % LAB HEMETOLOGY METHOD 03/13/2025 3:35 PM EDT [facility] Immature Granulocytes Relative 0.5 % LAB HEMETOLOGY METHOD 03/13/2025 3:35 PM EDT [facility] Neutrophils Absolute 5.61 1.50 - 7.00 K/mcL LAB HEMETOLOGY METHOD 03/13/2025 3:35 PM EDT [facility] Lymphocytes Absolute 1.83 1.00 - 5.00 K/mcL LAB HEMETOLOGY METHOD 03/13/2025 3:35 PM EDT [facility] Monocytes Absolute 0.74 0.20 - 1.00 K/mcL LAB HEMETOLOGY METHOD 03/13/2025 3:35 PM EDT [facility] Eosinophils Absolute 0.12 0.00 - 0.50 K/mcL LAB HEMETOLOGY METHOD 03/13/2025 3:35 PM EDT [facility] Basophils Absolute 0.08 0.00 - 0.20 K/mcL LAB HEMETOLOGY METHOD 03/13/2025 3:35 PM EDT [facility] Immature Granulocytes Absolute 0.04(H) 0.00 - 0.03 K/mcL LAB HEMETOLOGY METHOD 03/13/2025 3:35 PM EDT [facility] Blood Venous blood specimen / Unknown Venipuncture / Unknown 03/13/2025 12:19 PM EDT 03/13/2025 12:19 PM EDT us Jose Alberto PHILLIPS LAB BLOOD ORDERABLES Jimena victor Result [facility] [address] [place] [address], * Comprehensive metabolic panel (03/13/2025 12:19 PM EDT) Sodium 136 133 - 145 mmol/L LAB CHEMISTRY METHOD 03/13/2025 4:23 PM [facility] Potassium 4.2 3.5 - 5.5 mmol/L LAB CHEMISTRY METHOD 03/13/2025 4:23 PM [facility] Chloride 102 96 - 110 mmol/L LAB CHEMISTRY METHOD 03/13/2025 4:23 PM [facility] CO2 30 21 - 32 mmol/L LAB CHEMISTRY METHOD 03/13/2025 4:23 PM [facility] Anion Gap 4 3 - 11 LAB CHEMISTRY METHOD 03/13/2025 4:23 PM [facility] Glucose 87 70 - 100 mg/dL LAB CHEMISTRY METHOD 03/13/2025 4:23 PM [facility] BUN 17 5 - 25 mg/dL LAB CHEMISTRY METHOD 03/13/2025 4:23 PM [facility] Creatinine 1.27 0.70 - 1.30 mg/dL LAB CHEMISTRY METHOD 03/13/2025 4:23 PM [facility] eGFR 64 >=60 mL/min/1. 73m2 LAB CHEMISTRY METHOD 03/13/2025 4:23 PM [facility] Comment:Calculation based on the Chronic Kidney Disease Epidemiology Collaboration (CKD-EPI) equation refit without adjustment for race. BUN/Creatinine Ratio 13.4 LAB CHEMISTRY METHOD 03/13/2025 4:23 PM [facility] Calcium 9.2 8.5 - 10.5 mg/dL LAB CHEMISTRY METHOD 03/13/2025 4:23 PM [facility] AST (SGOT) 14 10 - 42 unit/L LAB CHEMISTRY METHOD 03/13/2025 4:23 PM [facility] ALT (SGPT) 18 10 - 60 unit/L LAB CHEMISTRY METHOD 03/13/2025 4:23 PM [facility] Alkaline Phosphatase 68 42 - 121 unit/L LAB CHEMISTRY METHOD 03/13/2025 4:23 PM EDT [facility] Total Protein 6.9 6.0 - 8.0 g/dL LAB CHEMISTRY METHOD 03/13/2025 4:23 PM EDT [facility] Albumin 4.1 3.2 - 5.0 g/dL LAB CHEMISTRY METHOD 03/13/2025 4:23 PM EDT [facility] Total Bilirubin 0.8 0.0 - 1.4 mg/dL LAB CHEMISTRY METHOD 03/13/2025 4:23 PM EDT [facility] Blood Venous blood specimen / Unknown Venipuncture / Unknown 03/13/2025 12:19 PM EDT 03/13/2025 12:19 PM EDT us Jose Alberto PHILLIPS LAB BLOOD ORDERABLES Jimena victor Result [facility] [address] [place] [address], * CT LUNG SCREENING LOW DOSE (07/17/2024 8:53 AM EDT) Anatomical Region Laterality Modality Computed Tomogra phy 07/16/2024 11:1 8 AM EDT Narrative 07/17/2024 8:53 AM EDT [facility] Diagnostic Imaging Department [address] [place] [address] Patient: JANEY CURRIE/Age/Sex: 1965 - 59 - M Unit#: [id number] Location/Status: SPDICATLS/REG CLI Mnemonic/Ordering Site: CTLUNGLD/SPCT Ordering Physician: JENIFER FRYE MD CT Lung Screening Low Dose - 07/16/24 - 1123 Report Status:Signed History: 59 year-old 46 pack-year current smoker, asymptomatic, for lung cancer screening. Comparison: 07/05/23, 06/27/18 Technique: Helical volumetric imaging of the thorax was performed, using low- dose technique, without IV contrast. DLP: 112.58 mGy/cm CTDIvol: 3.22 mGy NaehasT Iterative reconstruction technique Findings: Lungs and Airways: [...] annual screening with LDCT in 12 months. [id number] [id number] [id number] Dictating Physician: LESLIE JUAREZ MD Electronically Signed by: LESLIE JUAREZ MD Dic Date/Time: 07/17/2443 Sign date/Time: 07/17/24 0853 Procedure Note Leslie Juarez MD - 07/21/2024 [facility] Diagnostic Imaging Department [address] [place] [id number] Patient: TANIAJANEY Ankita Pugh./Age/Sex: 1965 - 59 - M Unit#: [id number] Location/Status: SPDICATLS/REG CLI Mnemonic[facility] Ordering Physician: JENIFER FRYE MD CT Lung Screening Low Dose - 07/16/24 - 1123 Report Status:Signed History: 59 year-old 46 pack-year current smoker, asymptomatic, for lungcancer screening. Comparison: 07/05/23, 06/27/18 Technique: Helical volumetric imaging of the thorax was performed, usinglow- dose technique, without IV contrast. DLP: 112.58 mGy/cm CTDIvol: 3.22 mGy impokpeed VCT Iterative reconstruction technique Findings: Lungs and [...] Continue annual screeningwith LDCT in 12 months. [id number] [id number] [id number] [id number] Dictating Physician: LESLIE JUAREZ MD Electronically Signed by: LESLIE JUAREZ MD Dic Date/Time: 07/17/2443 Sign date/Time: 07/17/2453 Result [facility] Jenifer Frye MD IMG CT PROCEDURES Final Result * Depression Screening (06/11/2024) Depression Screening Abstracted Historical Provider HEALTH MAINTENANCE Final Result * Hepatitis C Screening (02/01/2018) Hepatitis C Screening Abstracted Historical Provider HEALTH MAINTENANCE Final Result from Last 3 Months or Most Recently Relevant to Health Maintenance Insurance [employer] MEDICARE Advance Directives Documents on File Type Date Recorded Patient Bookkeeping Manager Expl anation Health Care Decision (hx) 07/21/2023 HE ALTH CARE PROXY Health Care Decision (hx) 07/21/2023 HE ALTH CARE PROXY Health Care Decision (hx) 07/21/2023 HE ALTH CARE PROXY Health Care Decision (hx) 12/11/2020 GO FOSTER DIRECTIVE Care Teams Starchmaker Relationship Specialty Start Date End Date Jose Alberto Palacio PA [address] [place] [address] PCP - General Internal Medicine 09/17/24
--- OUTSIDE RECORDS SUMMARY | 2025-03-27 08:47 | XMS_ITS | Clinical Summary ---
Author Organization [facility] Address [address] [place] [address] Care Team Providers Care Attendant Sales Name Role Phone Jose Alberto Palacio PA-C [...] 97 04/05/2023 2:15 PM EDT Temperature 36.9 C (98.5 F) 04/05/2023 2:15 PM EDT Respiratory Rate - - Oxygen Saturation 98% [...] 60-74 years 1-dose series) 2023 COVID-19 Vaccine ( - 2023-2 5 season) 2024 08/31/2021, 02/11/2021, 01/21/2021 Influenza Vaccine (#1) 2025 Hepatitis B Vaccines Aged Out No long er eligible based on patient's age to complete this topic RSV Ped < 20 months Aged Out No longe r eligible based on patient's age to complete this topic Care Teams Attendant Sales Relationship Specialty Start Date End Date Jose Alberto Palacio PA-C PCP - General Medical Services 03/03/23
== END 2025-03-27 08:57 | disposition home or self-care (01) ==
PROVIDERS: PCP Physician Assistant Medical; Visit Provider Internal Medicine Rheumatology
DX: M05.79 Rheumatoid arthritis with rheumatoid factor of multiple sites without organ or systems involvement (principal); Z79.899 Other long term (current) drug therapy; R25.2 Cramp and spasm
CPT/HCPCS: 99214; G2211

== ENCOUNTER 2025-07-10 12:40 | Outpatient (REF) | payer MEDICARE, SELFPAY ==
[2025-07-10 18:26] LABS: MANUAL DIFF FLAG NO
--- OUTSIDE RECORDS SUMMARY | 2025-07-10 18:36 | XMS_ITS | Clinical Summary ---
Author Organization [facility] Address [address] [place] [address] Phone Care Team Providers Care Water Softener Service Supervisor Name Role Phone Jose Alberto Palacio Primary Care Provider [phone] Allergies Active Allergy Reactions Criticality Noted Date Comments Naproxen 02/01/2018 Other Reaction(s): Hives/Urticaria Medications methotrexate 2.5 mg tablet Take 8 Tablets by mouth once a week/sundays10/21/19 22 Active celecoxib (CeleBREX) 200 mg capsule TAKE 1 CAPSULE BY MOUTH TWICE DAILY WITH FOOD 07/08/20 22 Active folic acid (FOLVITE) 1 mg tablet Take 1 tablet (1,000 mcg total) by mouth 1 (one) time each day. 01/26/20 23 Active Oxygen Therapy (O2) gas Inhale 2 L into the lungs at bedtime. [employer] Active escitalopram (LEXAPRO) 20 mg tablet Take 1 tablet (20 mg total) by mouth 1 (one) time each day. 90 tablet 3 10/22/19 25 Active busPIRone (BUSPAR) 5 mg tablet Take 1 tablet (5 mg total) by mouth 3 (three) times a day. TAKE 1 TABLET BY MOUTH THREE TIMES DAILY 270 tablet 3 12/19/19 25 Active fluticasone-umecli dinium-vilanterol (Trelegy Ellipta) 100-62.5-25 mcg inhalerIndications :Stage 2 moderate COPD by GOLD classification (CMS/HCC V24, CMS/HCC V28) Inhale 1 puff (100 mcg total) by mouth 1 (one) time each day. Rinse mouth with water after use to reduce aftertaste and incidence of candidiasis. Do not swallow. 60 each 02/07/20 026 Active albuterol HFA (PROAIR HFA ; PROVENTIL HFA ; VENTOLIN HFA) 90 mcg/actuation inhalerIndications :Stage 2 moderate COPD by GOLD classification ([facility] V24, [facility] V28) Inhale 2 puffs by mouth every 4 (four) hours if needed for wheezing. Inhale 2 Puffs into the lungs 4 times daily as needed for Cough, Wheezing or Shortness of Breath. 18 g 02/07/20 025 Active ipratropium-albute roL (DUONEB) 0.5-2.5 mg/3 mL nebulizer solutionIndication s:Centrilobular emphysema ([facility] V24, [facility] V28),Chronic obstructive pulmonary disease, unspecified ([facility] V24, [facility] V28) Take 3 mL by nebulization 4 (four) times a day if needed for wheezing. 360 mL 02/07/20 25 Active aspirin 325 mg tablet Take 1 tablet (325 mg total) by mouth 1 (one) time each day. Active omeprazole (PriLOSEC) [address] capsule Take 1 capsule (20 mg total) by mouth 1 (one) time each day. 90 capsule 3 03/13/20 25 Active ketoconazole 1 % shampoo Shampoo daily, leave on for 5-10 minutes, then rinse. 120 mL 03/13/20 25 026 Active atorvastatin (LIPITOR) 20 mg tablet TAKE 1 TABLET BY MOUTH EVERY DAY 90 tablet 1 05/15/20 25 Active HYDROcodone-acetam inophen (NORCO) 5-325 mg per tablet Take 1 tablet by mouth every 6 (six) hours if needed for severe pain. Max Daily Amount: 4 tablets 112 tablet 06/26/20 25 Active gabapentin (NEURONTIN) 600 mg tablet Take 1 tablet (600 mg total) by mouth 3 (three) times a day. 270 tablet 07/01/20 25 Active traZODone (DESYREL) 150 mg tablet Take 1 tablet (150 mg total) by mouth at bedtime. at bedtime 90 tablet 1 07/01/20 Active traMADoL (ULTRAM) 50 mg tablet Take 1 tablet (50 mg total) by mouth every 6 (six) hours if needed for severe pain. Max Daily Amount: 200 mg 112 tablet 02/16/20 25 Discontin ued(Alter guido therapy) gabapentin (NEURONTIN) 600 mg tablet TAKE 1 TABLET BY MOUTH THREE TIMES DAILY AT 9 AM 3 PM AND 9 PM 180 tablet 04/02/20 25 Discontin ued(Reord er) traZODone (DESYREL) 150 mg tablet TAKE 1 TABLET BY MOUTH EVERY NIGHT AT BEDTIME 90 tablet 1 04/17/20 25 Discontin ued(Reord er) HYDROcodone-acetam inophen (NORCO) 5-325 mg per tablet Take 1 tablet by mouth every 6 (six) hours if needed for severe pain. 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 V24, [facility] V28) 02/01/2018 Overview (08/07/2024): Onset ~ 2014. Some treatment with methotrexate and Xeljanz ~ 2015 but ran out of insurance RF, CCP Ab positive Encounters Date Type Department Care Team Description 07/02/2025 9:53 AM EDT Anesthesia Event [facility] [address] [place] [phone] Victorino Murphy MD 07/02/2025 9:45 AM EDT - 07/02/2025 11:59 PM EDT Hospital Encounter [facility] Xray [address] [place] [phone] Pain Discharge Disposition: Home or Self Care 07/02/2025 8:55 AM EDT - 07/02/2025 11:59 PM EDT Hospital Encounter [facility] [address] [place] [phone] Jarocho Andrews DO Saliga, Jesse L, MD Swanson, Mona, CRNA Vertebrogenic low back pain Discharge Disposition: Home or Self Care 07/01/2025 1:30 PM EDT Office Visit Adult Medicine [address] [phone] Ingrid Stafford PA Mixed hyperlipidemia (Primary Dx); Gastroesophageal reflux disease without esophagitis; Stage 2 moderate COPD by GOLD classification ([facility] V24, [facility] V28); Primary osteoarthritis of both knees; Acute pain of right knee; Seropositive rheumatoid arthritis of multiple sites ([facility] V24, [facility] V28); Spondylolisthesis of lumbosacral region; Anxiety; Primary insomnia 06/28/2025 Telephone Lung Screening Program [facility] [address] [facility] [address] [place] [phone] Jenifer Frye MD 06/06/2025 Telephone Adult Medicine [facility] [address] [place] [phone] Jose Alberto Palacio PA 04/29/2025 Telephone Adult Medicine [facility] [address] [place] [phone] Jose Alberto Palacio PA 04/23/2025 4:00 PM EDT Office Visit Pulmonology - [place] [address] [facility] [address] [place] [address] Mami Valentine NP Stage 2 moderate COPD by GOLD classification ([facility] V24, [facility] V28) (Primary Dx); Centrilobular emphysema ([facility] V24, [facility] V28); Dyspnea on exertion; Tobacco use; Nocturnal hypoxia from Last 3 Months Immunizations Immunization Administration Dates Next Due [employer] SARS-CoV-2 COVID-19, mRNA, LNP-S, preservative free 08/31/2021,02/11/2021,01/21/2021 Surgical History Surgery Date Site/Laterality Comments NECK SURGERY PROCEDURE: HISTORICAL NECK SURGERY; COMMENT: per patient 2 disc levels fused, in [place] CARPAL TUNNEL RELEASE Right PROCEDURE: MO NEUROPLASTY &/TRANSPOS MEDIAN NRV CARPAL TUNNE; COMMENT: In [place] OTHER SURGICAL HISTORY Left PROCEDURE: HISTORICAL EAR SURGERY; COMMENT: congenital ear deformity OTHER SURGICAL HISTORY 08/2023 PROCEDURE: HISTORY OTHER; COMMENT: Cardiac stent placed, patient was having chest pain Medical History Medical History Date Comments Gout 02/01/2018 DX:Gout Anxiety 02/01/2018 DX:Anxiety Tobacco use 02/01/2018 DX:Tobacco use Pulmonary emphysema ([facility] V24, [facility] V28) 02/01/2018 DX:Pulmonary emphysema (HCC) Seropositive rheumatoid arth ritis of multiple sites ([facility] V24, 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 V24, [facility] V28) 05/26/2018 DX:Stage 2 moderate COPD by GOLD classification ([facility]); COMMENT: S/p LDCT 06/2018 no suspicious findings Family History Medical History Relation Name Comments Arthritis Mother Relation Name Status Comments Mother Social History Tobacco Use Types Packs/Day Years Used Date Smoking Tobacco: Every Day Cigarettes 1 50.8 Started: 09/19/1974 Smokeless Tobacco: Never Tobacco Cessation:Ready to Q uit: Not Asked; Counseling Given: Not Answered Alcohol Use Standard Drinks/Week Comments Yes 0 (1 standard drink = 0.6 oz pur e alcohol) socially Interpersonal Safety Answer Date Record ed Physical Abuse Unrecognized value 07/02/2025 Verbal Abuse Unrecognized value 07/02/2025 Sex and Gender Information Value Date Recorded Sex Assigned at Male 09/28/2024 6:10 PM EST Legal Sex Male 2:23 PM EST Gender Identity Male 09/28/2024 6:10 PM EST Sexual Orientation Straight 09/28/2024 6: 10 PM EST Obstetrics History Last Filed Vital Signs Vital Sign Reading Time Taken Comments Blood Pressure 127/81 07/02/2025 10:21 AM EDT Pulse 65 07/02/2025 10:21 AM EDT Temperature 36.9 C (98.4 F) 07/02/2025 10:19 AM EDT Respiratory Rate 16 07/02/2025 10:21 AM EDT Oxygen Saturation 97% 07/02/2025 10:21 AM EDT Inhaled Oxygen Concentration - - Weight 74.8 kg (165 lb) 07/02/2025 9:18 AM EDT Height 172.7 cm (5' 7.99 ) 07/02/2025 9:18 AM ED T Body Mass Index 25.09 07/02/2025 9:18 AM EDT Plan of Treatment Upcoming Encounters Date Type Department Care Team (Late st Contact Info) Description 07/17/2025 7:15 AM EDT Appointment [facility] CT Scan [address] [place] [phone] 09/30/2025 9:00 AM EST Office Visit Adult Medicine [address] [phone] Jose Alberto Palacio PA [address] [place] [phone] Health Maintenance Due Date Last Done Comments Medicare Annual Wellness Visit 08/28/2022 Social Influencers of Health Screening 08/28/2022 Lung Cancer Screening (Low Dose CT) 07/17/2025 07/17/2024, 07/08/2023, 07/05/2022, Additional history exists Influenza Vaccine (#1) 2026 Postp oned from 05/20/2025 (Patient Refused) Cholesterol Screening (Lipid Panel) 03/13/2030 03/13/2025, 09/17/2024, 08/29/2023 Colorectal Cancer Screening: Colonoscopy 08/28/2034 08/28/2024 Hepatitis C Screening Completed 02/01/2018 COVID-19 Vaccine Discontinued 08/31/2021, , 01/21/2021 Depression Screening Completed 07/01/2025, 06/11/20 24 DTaP,Tdap,and Td Vaccines Discontinued HIB Vaccines Aged Out No longer eligi ble based on patient's age to complete this topic HIV Screening Discontinued HPV Vaccines Aged Out No longer eligi [...] this topic Pneumococcal Vaccine: 50+ Years Discontinued RSV Immunization Adult Patients Discontinued RSV Immunization Patients Under 20 months Aged Out No longer eligible based on patient's age to complete this topic Varicella Vaccines Aged Out No longer eligible based on patient's age to complete this topic Zoster Vaccines Discontinued Procedures Procedure Name Priority Date/Time Associated Diagnosis Comments LIPID PANEL WITH REFLEX TO DIRECT LDL Routine 03/13/2025 12:19 PM EDT Tobacco use Mixed hyperlipidemia Stage 2 moderate COPD by GOLD classification (CMS/HCC V24, CMS/HCC V28) Seropositive rheumatoid arthritis of multiple sites (CMS/HCC V24, [facility]/HCC V28) Anxiety CT LUNG SCREENING LOW DOSE Routine 07/17/2024 8:53 AM EDT Encounter for screening for malignant neoplasm of respiratory organs DEPRESSION SCREENING Routine 06/11/2024 HEPATITIS C SCREENING Routine 02/01/2018 from Last 3 Months or Most Recently Relevant to Health Maintenance Results * Lipid panel with reflex to direct LDL (03/13/2025 12:19 PM EDT) Cholesterol 158 0 - 200 mg/dL LAB CHEMISTRY METHOD 03/13/2025 4:23 PM [facility] Triglycerides 134 0 - 150 mg/dL LAB CHEMISTRY METHOD 03/13/2025 4:23 PM [facility] HDL 53 >=40 mg/dL LAB CHEMISTRY METHOD 03/13/2025 4:23 PM [facility] LDL Calculated 78 0 - 100 mg/dL LAB CHEMISTRY METHOD 03/13/2025 4:23 PM [facility] VLDL Cholesterol Rodrigo 26.8 mg/dL LAB CHEMISTRY METHOD 03/13/2025 4:23 PM [facility] Non HDL Chol. (LDL+VLDL) 105 <145 mg/dL LAB CHEMISTRY METHOD 03/13/2025 4:23 PM [facility] Chol/HDL Ratio 3.0 0.0 - 4.4 LAB CHEMISTRY METHOD 03/13/2025 4:23 PM [facility] Blood Venous blood specimen / Unknown Venipuncture / Unknown 03/13/2025 12:19 PM EDT 03/13/2025 12:19 PM EDT us Jose Alberto PHILLIPS LAB BLOOD ORDERABLES Jimena victor Result [facility] [address] [place] [address], [place] [phone] * CT LUNG SCREENING LOW DOSE (07/17/2024 8:53 AM EDT) Anatomical Region Laterality Modality Computed Tomogra phy 07/16/2024 11:1 8 AM EDT Narrative 07/17/2024 8:53 AM EDT [facility] Diagnostic Imaging Department [address] [place] [address] Patient: JANEY CURRIE D.O.B./Age/Sex: 1965 - 59 - M Unit#: [id number] [facility]Ordering Site[facility] Ordering Physician: JENIFER FRYE MD CT Lung Screening Low Dose - 07/16/24 - 1123 Report Status:Signed History: 59 year-old 46 pack-year current smoker, asymptomatic, for lung cancer screening. Comparison: 07/05/23, 06/27/18 Technique: Helical volumetric imaging of the thorax was performed, using low- dose technique, without IV contrast. DLP: 112.58 mGy/cm CTDIvol: 3.22 mGy Ba[place]im VCT Iterative reconstruction technique Findings: Lungs and [...] annual screening with LDCT in 12 months. [id number] G9637 G9557 [id number] Dictating Physician: LESLIE JUAREZ MD Electronically Signed by: LESLIE JUAREZ MD Dic Date/Time: 07/17/24842 Sign date/Time: 07/17/24 0853 Procedure Note Leslie Juarez MD - 07/21/2024 [facility] Diagnostic Imaging Department [address] [place], [place] [id number] Patient: JANEY CURRIE Ankita Pugh./Age/Sex: 1965 - 59 - M Unit#: [id number] Location/Status: SPDICATLS/REG CLI Mnemonic/Ordering Site: [facility] Ordering Physician: JENIFER FRYE MD CT Lung Screening Low Dose - 07/16/24 - 1123 Report Status:Signed History: 59 year-old 46 pack-year current smoker, asymptomatic, for lungcancer screening. Comparison: 07/05/23, 06/27/18 Technique: Helical volumetric imaging of the thorax was performed, usinglow- dose technique, without IV contrast. DLP: 112.58 mGy/cm CTDIvol: 3.22 mGy Baokim VCT Iterative reconstruction technique Findings: Lungs and [...] Continue annual screeningwith LDCT in 12 months. [id number] G9637 G9557 G9551 Dictating Physician: LESLIE JUAREZ MD Electronically Signed by: LESLIE JUAREZ MD Dic Date/Time: 07/17/2443 Sign date/Time: 07/17/24 0853 us Jenifer Frye MD IMG CT PROCEDURES Final Result * Depression Screening (06/11/2024) Depression Screening Abstracted Historical Provider HEALTH MAINTENANCE Final Result * Hepatitis C Screening (02/01/2018) Hepatitis C Screening Abstracted Historical Provider HEALTH MAINTENANCE Final Result from Last 3 Months or Most Recently Relevant to Health Maintenance Insurance [employer] MEDICARE Advance Directives Documents on File Type Date Recorded Patient Director Of Special Education Expl anation Health Care Decision (hx) 07/21/2023 HE ALTH CARE PROXY Health Care Decision (hx) 07/21/2023 HE ALTH CARE PROXY Health Care Decision (hx) 07/21/2023 HE ALTH CARE PROXY Health Care Decision (hx) 12/11/2020 GO FOSTER DIRECTIVE Care Teams Water Softener Service Supervisor Relationship Specialty Start Date End Date Jose Alberto Palacio PA [address] [place] [address] PCP - General Internal Medicine 09/17/24
[2025-07-10 18:42] LABS: Hematocrit 41.5 % (42.0-52.0); Hemoglobin 13.9 g/dl (14.0-18.0); Imm Gran Abs Auto 0.11 X10*3/uL (0.00-0.03); Imm Gran Pct Auto 0.9 % (0.0-0.4); Lymphocytes Absolute Auto 1.9 X10*3/uL (1.2-4.9); Mean Corpuscular HGB Conc 33.5 g/dl (31.0-36.0); Mean Corpuscular Hemoglobin 33.8 pg (27.0-33.0); Mean Corpuscular Volume 101.0 fL (80.0-98.0); NRBC Abs Auto 0.000 X10*3/uL (0.0-0.012); NRBC Pct Auto 0.0 /100WBC (0.0-0.2); Platelet Count 233 X10*3/uL (160-400); Red Blood Count 4.11 X10*6/uL (4.60-5.80); White Blood Count 11.9 X10*3/uL (4.8-10.8)
[2025-07-10 19:16] LABS: Alanine Aminotransferase 10 U/L (0-40); Aspartate Amino Transferase 17 U/L (5-37); Estimated Glomerular Filt Rate 54
== END 2025-07-10 12:41 | disposition home or self-care (01) ==
LOC: HO.HKASLDS 12:40
PROVIDERS: PCP Physician Assistant Medical; Visit Provider Internal Medicine Rheumatology
DX: M05.79 Rheumatoid arthritis with rheumatoid factor of multiple sites without organ or systems involvement (principal); Z79.899 Other long term (current) drug therapy; Z79.631 Long term (current) use of antimetabolite agent
CPT/HCPCS: 36415; 82565; 84450; 84460; 85025; 85652; 86140; 99212

== ENCOUNTER 2025-07-10 12:40 | Outpatient (AMB) | payer MEDICARE, SELFPAY ==
[2025-07-10 12:46] VITALS: BP 130/80; PULSE 105; O2SAT 96; BMI 24.3
--- NOTE | 2025-07-10 12:46 | MHC.OFFVIS ---
Vital Signs 07/10/25 12:46 Height 5 ft 8 in Weight 160 lb 2 oz BMI 24.3 BP 130/80 Blood Pressure Location Rt brachial Position Sitting Pulse 105 H Pulse Source Pulse Oximeter Pulse Oximetry (%) 96 Oxygen Delivery Method Room Air Intake Visit Reasons: 3 Months Intake Note: Patient presents for follow up on RA. Accompanied by: Self / Same As Patient Allergies naproxen (From Aleve) Adverse Reaction (Verified 03/27/25 08:36) rash HPI HPI 3 Months: Details: He has been getting recurrent oral thrush for awhile. He has been treated by PCP with possibly nystatin. It resolves after a couple of days of treatment. He is experiencing burning sensation in his tongue. It is improving with taking prescribed medicines from PCP. Denies no new joint swelling or stiffness. [facility] Social History Patient Tobacco Use Status: Current everyday Tobacco user Physical Exam Vital Signs: Last Vital Signs Pulse 105 H 07/10/25 12:46 BP 130/80 07/10/25 12:46 Pulse Ox 96 07/10/25 12:46 Oxygen Delivery Method Room Air 07/10/25 12:46 BMI result Body Mass Index 24.3 Const Other: General: Comfortable CVS: RRR Respiratory: clear to auscultation bilaterally. Good respiratory effort Skin: No lesions seen Oral: Slight white coating on tongue MSK: No tenderness of any joints. No synovitis. Normal range of motion of upper and lower extremities. Assessment & Plan Assessment & Plan (1) Rheumatoid arthritis: Comment: Controlled with monotherapy with methotrexate. He is experiencing recurrent oral candidiasis. We discussed rare risk of disseminated candidiasis that can occur in immunocompromised state. Code(s): M06.9 - Rheumatoid arthritis, unspecified Category: Medical Qualifiers: Rheumatoid arthritis location: multiple sites Rheumatoid factor presence: with rheumatoid factor Qualified Code(s): M05.79 - Rheumatoid arthritis with rheumatoid factor of multiple sites without organ or systems involvement Plan: Reduce methotrexate to 17.5 mg once weekly Continue folic acid 1 mg daily Labs for disease and drug monitoring on high risk medication due today Follow up with PCP for thrush management. If he has another flare of oral thrush, consider escalating therapy with fluconazole Return to clinic in 3 months (2) Other residential (current) drug therapy: Code(s): Z - Other marine oil terminal superintendent (current) drug therapy Category: Medical Plan: See above Orders: Orders Complete Blood Count Auto Diff Today Z - Other marine oil terminal superintendent (current) drug therapy Alanine Aminotransferase Today Z - Other residential (current) drug therapy Creatinine Today Z. - Other residential (current) drug therapy Erythrocyte Sedimentation Rate Today Z. - Other residential (current) drug therapy Aspartate Amino Transferase Today Z - Other residential (current) drug therapy C Reactive Protein Today Z. - Other residential (current) drug therapy Medications: Changed From methotrexate sodium 20 mg (8 x 2.5 mg) PO QWEEK 12 weeks 96 tabs 0RF To methotrexate sodium 17.5 mg (7 x 2.5 mg) PO QWEEK 84 tabs 0RF 12 weeks Refilled methotrexate sodium 20 mg (8 x 2.5 mg) PO QWEEK 12 weeks 96 tabs 0RF folic acid 1 mg PO DAILY 90 tabs 3RF Coding Level of Care Code Est Pt Level 4 (78733) Complex EM visit Add On G2211 Diagnoses Rheumatoid arthritis involving multiple sites with positive rheumatoid factor M05.79 Rheumatoid arthritis location: multiple sites Rheumatoid factor presence: with rheumatoid factor Other residential (current) drug therapy Z
--- OUTSIDE RECORDS SUMMARY | 2025-07-10 17:32 | XMS_ITS | Clinical Summary ---
Author Organization [facility] Address [address] [place] [address] Care Team Providers Care Home Economics Extension Worker Name Role Phone Jose Alberto Palacio PA-C [...] 1-dose series) 2023 COVID-19 Vaccine (4 - 2024-2 6 season) 2025 08/31/2021, 02/11/2021, 01/21/2021 Influenza Vaccine (#1) 2025 Hepatitis B Vaccines Aged Out No long er eligible based on patient's age to complete this topic RSV Ped < 20 months Aged Out No longe r eligible based on patient's age to complete this topic Care Teams Home Economics Extension Worker Relationship Specialty Start Date End Date Jose Alberto Palacio PA-C PCP - General Medical Services 03/03/23
== END 2025-07-10 13:12 | disposition home or self-care (01) ==
LOC: HO.RHES 12:41
PROVIDERS: PCP Physician Assistant Medical; Visit Provider Internal Medicine Rheumatology
DX: M05.79 Rheumatoid arthritis with rheumatoid factor of multiple sites without organ or systems involvement (principal); Z79.899 Other long term (current) drug therapy
CPT/HCPCS: 99214; G2211